=== PATIENT | female | born 1945 | race Caucasian/White ===

== ENCOUNTER 2016-10-17 11:18 | Inpatient (IN) | payer BC, MEDICARE ==
[2016-10-17] MEDS ORDERED: SODIUM CHLORIDE 0.9% 500 ML IV STA (11:33)
[2016-10-17] MEDS ORDERED: SODIUM CHLORIDE 0.9% 1,000 ML IV STA ×2 (11:33→16:19)
--- NOTE | 2016-10-17 11:42 | ED ---
SOB HPI - General Stated Complaint: Poss Infection Time Seen by Provider: 10/17/16 11:18 Source: patient, EMS, RN notes reviewed Mode of arrival: EMS - History of Present Illness Initial Comments: This is a 71-year-old female was [facility] evaluation of shortness of breath and hypotension. 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 She still has a drainage tube in for her bile. He was just released from [facility] the [facility] her normal blood pressure is 1:30/70 today was 90/50 she was afebrile heart rate was 112 patient does states she recently had a thoracentesis with one half liters of fluid removed from her lung cavity. She also complains of peripheral edema which she states is not too much worsening usual she has no other complaints at this time. MD Complaint: shortness of breath - Related Data Home Medications Medication Instructions Recorded Confirmed Albuterol Sulfate [Proventil Hfa] 2 puff INHALATION RT-Q4H PRN 10/17/16 10/17/16 Biotin 5,000 mcg PO DAILY@1700 10/17/16 10/17/16 Bisacodyl [Dulcolax] 10 mg RECTAL DAILY PRN 10/17/16 10/17/16 Calcium Citrate 500 mg PO BID@0800,0 10/17/16 10/17/16 Cholecalciferol [Vitamin D3] 5,000 unit PO DAILY@1700 10/17/16 10/17/16 Furosemide [Lasix] 20 mg PO DAILY@0600 10/17/16 10/17/16 Hydrocortisone Cream 1 applic TOPICAL BID 10/17/16 10/17/16 [Hydrocortisone 1% Cream] Lactose-Reduced Food [Ensure Plus] 120 ml PO QID 10/17/16 10/17/16 Magnesium Hydroxide [Milk of 2,400 mg PO DAILY PRN 10/17/16 10/17/16 Magnesia] Meropenem [Merrem] 1 gm IVPB DIRECTED 10/17/16 10/17/16 Mirtazapine [Remeron] 15 mg PO HS@2100 10/17/16 10/17/16 Multivitamins, Thera [Multivitamin 1 tab PO DAILY@17010/17/16 10/17/16 (formulary)] Na Phos,M-B/Na Phos,Di-Ba [Fleet 133 ml RECTAL DAILY PRN 10/17/16 10/17/16 Adult] Omeprazole 20 mg PO BID@0600,1700 10/17/16 10/17/16 Potassium Chloride [Klor-Con 20] 20 meq PO DAILY@1700 10/17/16 10/17/16 Sennosides [Senokot] 17.2 mg PO BID@0800,1700 10/17/16 10/17/16 busPIRone HCl [Buspar] 5 mg PO TID@0600,1400,2100 10/17/16 10/17/16 diphenhydrAMINE [Benadryl] 25 mg PO Q6H PRN 10/17/16 10/17/16 fentaNYL 50MCG/HR PATCH [Duragesic 1 patch TOPICAL Q72H 10/17/16 10/17/16 50MCG/HR] oxyCODONE HCL 15 mg PO Q4H PRN 10/17/16 10/17/16 Allergies Allergy/AdvReac Type Severity Reaction Status Date / Time piperacillin [From Zosyn] Allergy Unknown Verified 10/17/16 11:45 tazobactam [From Zosyn] Allergy Unknown Verified 10/17/16 11:45 morphine AdvReac Confusion Verified 10/17/16 11:40 Review of Systems ROS Statement: Those systems with pertinent positive or pertinent negative responses have been documented in the HPI. ROS Other: All systems not noted in ROS Statement are negative. General Exam - General Exam Comments Initial Comments: This is a well-developed well-nourished awake alert oriented 3 female General appearance: alert, in no apparent distress Head exam: Present: atraumatic, normocephalic, normal inspection Eye exam: Present: normal appearance, PERRL, EOMI. Absent: scleral icterus, conjunctival injection, periorbital swelling ENT exam: Present: mucous membranes dry Neck exam: Present: normal inspection. Absent: tenderness, meningismus, lymphadenopathy Respiratory exam: Present: decreased breath sounds, other (Dullness to percussion right greater than left). Absent: respiratory distress, wheezes, rales, rhonchi, stridor Cardiovascular Exam: Present: normal rhythm, tachycardia, normal heart sounds. Absent: systolic murmur, diastolic murmur, rubs, gallop, clicks GI/Abdominal exam: Present: soft, normal bowel sounds, other (A drainage catheter is in place draining bile or some evidence of bile leak around the site ). Absent: distended, tenderness, guarding, rebound, rigid Rectal exam: Present: deferred Extremities exam: Present: normal inspection, full ROM, normal capillary refill , pedal edema. Absent: tenderness, joint swelling, calf tenderness Back exam: Present: normal inspection Neurological exam: Present: alert, oriented X3, CN II-XII intact Psychiatric exam: Present: normal affect, normal mood Skin exam: Present: warm, dry, intact. Absent: rash Course Vital Signs 10/17/16 10/17/16 10/17/16 11:31 13:56 14:04 Temperature 98.7 F Pulse Rate 110 H 119 H 117 H Respiratory 22 18 20 Rate Blood Pressure 95/52 97/53 107/59 O2 Sat by Pulse 96 97 97 Oximetry 10/17/16 10/17/16 10/17/16 15:12 16:00 16:46 Temperature Pulse Rate 113 H 112 H 111 H Respiratory 16 20 20 Rate Blood Pressure 97/56 95/53 97/56 O2 Sat by Pulse 98 98 98 Oximetry - Reevaluation(s) Reevaluation #1: 10/17/16 18:06 Initial reevaluation patient reveals that she son minimally improved after initial IVs. Reevaluation #2: 10/17/16 18:06 I did a very long talk with the patient and her family as well as with Dr. Almaguer and [facility]. The patient initially wanted to be transferred after discussion with her surgeon it is felt that the patient remain here for IV hydration the patient at this time is refusing to have a thoracentesis. She' ll be hydrated up at did discuss the case with the admitting service. The patient's lab work has improved since her discharge is felt that her pleural effusion is likely not any better than when she left [place] a week ago. Medical Decision Making - Lab Data Result diagrams: 10/17/16 11:55 10/17/16 11:55 Lab Results 10/17/16 10/17/16 10/17/16 Range/Units 11:55 11:55 11:55 WBC (3.8-10.6) k/uL RBC (3.80-5.40) m/uL Hgb (11.4-16.0) gm/dL Hct (34.0-46.0) % MCV (80.0-100.0) fL MCH (25.0-35.0) pg MCHC (31.0-37.0) g/dL RDW (11.5-15.5) % Plt Count (150-450) k/uL Neutrophils % % Lymphocytes % % Monocytes % % Eosinophils % % Basophils % % Neutrophils # (1.3-7.7) k/uL Lymphocytes # (1.0-4.8) k/uL Monocytes # (0-1.0) k/uL Eosinophils # (0-0.7) k/uL Basophils # (0-0.2) k/uL Hypochromasia Macrocytosis PT (9.0-12.0) sec INR (<1.1) APTT (22.0-30.0) sec Sodium 133 L (137-145) mmol/L Potassium 4.7 (3.5-5.1) mmol/L Chloride 102 (98-107) mmol/L Carbon Dioxide 26 (22-30) mmol/L Anion Gap 5 mmol/L BUN 15 (7-17) mg/dL Creatinine 0.66 (0.52-1.04) mg/dL Est GFR (MDRD) Af Amer >60 (>60 ml/min/1.73 sqM) Est GFR (MDRD) Non-Af >60 (>60 ml/min/1.73 sqM) Glucose 119 H (74-99) mg/dL Plasma Lactic Acid John 1.9 (0.7-2.0) mmol/L Calcium 7.5 L (8.4-10.2) mg/dL Magnesium 2.0 (1.6-2.3) mg/dL Total Bilirubin 2.0 H (0.2-1.3) mg/dL AST 29 (14-36) U/L ALT 38 (9-52) U/L Alkaline Phosphatase 104 (38-126) U/L Total Creatine Kinase <20 L (30-135) U/L CK-MB (CK-2) 0.3 (0.0-2.4) ng/mL CK-MB (CK-2) Rel Index 0.0 Troponin I <0.012 (0.000-0.034) ng/mL NT-Pro-B Natriuret Pep pg/mL Total Protein 5.1 L (6.3-8.2) g/dL Albumin 2.1 L (3.5-5.0) g/dL Amylase 57 (30-110) U/L Lipase 94 (23-300) U/L 10/17/16 10/17/16 10/17/16 Range/Units 11:55 11:55 11:55 WBC 13.0 H (3.8-10.6) k/uL RBC 3.10 L (3.80-5.40) m/uL Hgb 10.2 L (11.4-16.0) gm/dL Hct 31.1 L (34.0-46.0) % MCV 100.3 H (80.0-100.0) fL MCH 32.9 (25.0-35.0) pg MCHC 32.8 (31.0-37.0) g/dL RDW 14.8 (11.5-15.5) % Plt Count 269 (150-450) k/uL Neutrophils % 70 % Lymphocytes % 12 % Monocytes % 5 % Eosinophils % 11 % Basophils % 1 % Neutrophils # 9.1 H (1.3-7.7) k/uL Lymphocytes # 1.5 (1.0-4.8) k/uL Monocytes # 0.6 (0-1.0) k/uL Eosinophils # 1.4 H (0-0.7) k/uL Basophils # 0.1 (0-0.2) k/uL Hypochromasia Slight Macrocytosis Slight PT 13.0 H (9.0-12.0) sec INR 1.3 (<1.1) APTT 29.5 (22.0-30.0) sec Sodium (137-145) mmol/L Potassium (3.5-5.1) mmol/L Chloride (98-107) mmol/L Carbon Dioxide (22-30) mmol/L Anion Gap mmol/L BUN (7-17) mg/dL Creatinine (0.52-1.04) mg/dL Est GFR (MDRD) Af Amer (>60 ml/min/1.73 sqM) Est GFR (MDRD) Non-Af (>60 ml/min/1.73 sqM) Glucose (74-99) mg/dL Plasma Lactic Acid John (0.7-2.0) mmol/L Calcium (8.4-10.2) mg/dL Magnesium (1.6-2.3) mg/dL Total Bilirubin (0.2-1.3) mg/dL AST (14-36) U/L ALT (9-52) U/L Alkaline Phosphatase (38-126) U/L Total Creatine Kinase (30-135) U/L CK-MB (CK-2) (0.0-2.4) ng/mL CK-MB (CK-2) Rel Index Troponin I (0.000-0.034) ng/mL NT-Pro-B Natriuret Pep 446 pg/mL Total Protein (6.3-8.2) g/dL Albumin (3.5-5.0) g/dL Amylase (30-110) U/L Lipase (23-300) U/L - EKG Data -: EKG Interpreted by Ak EKG shows normal: sinus rhythm (Sinus tachycardia rate 109 appear of 12 QRS duration 66 daily since QTC of 320/4:30 right axis deviation nonspecific anterior changes.) Disposition Clinical Impression: Hypotension, Dehydration, Pleural effusion, History of liver excision Disposition: ADMITTED IP TO THIS [facility] Condition: Stable Referrals: Raffaele Cooper DO [Primary Care Provider] - 1-2 days
[2016-10-17 12:21] LABS: ALT 38 U/L (9-52); AST 29 U/L (14-36); Alkaline Phosphatase 104 U/L (38-126); Amylase 57 U/L (30-110); Anion Gap 5 mmol/L; Blood Urea Nitrogen 15 mg/dL (7-17); Calcium 7.5 mg/dL (8.4-10.2); Carbon Dioxide 26 mmol/L (22-30); Chloride 102 mmol/L (98-107); Glucose 119 mg/dL (74-99); Non-African American GFR(MDRD) >60 (>60 ml/min/1.73 sqM); Potassium 4.7 mmol/L (3.5-5.1); Sodium 133 mmol/L (137-145); Total Protein 5.1 g/dL (6.3-8.2)
--- NOTE | 2016-10-17 12:25 | XR ---
EXAMINATION TYPE: XR chest 2V DATE OF EXAM: 10/17/2016 12:18 PM HISTORY: difficulty breathing. REFERENCE: NONE. FINDINGS: Lung volumes are prominent. There are bilateral effusions larger on the right than the left . There is associated atelectatic change. Heart size is obscured. Note is made of a right basilic PICC line with its tip in the superior vena cava. IMPRESSION: 1. BILATERAL PLEURAL EFFUSIONS, GREATER ON THE RIGHT THAN THE LEFT. 2. BIBASILAR ATELECTASIS.
[2016-10-17 12:27] LABS: Basophils # (A) 0.1 k/uL (0-0.2); Basophils % (A) 1 %; CH 31.4; CHCM 31.5; Eosinophils # (A) 1.4 k/uL (0-0.7); Eosinophils % (A) 11 %; HCT 31.1 % (34.0-46.0); HDW 2.88; HGB 10.2 gm/dL (11.4-16.0); Hypochromasia Slight; Luc # (Auto) 0.23; Luc % (Auto) 2; Lymphocytes # (A) 1.5 k/uL (1.0-4.8); Lymphocytes % (A) 12 %; MCH 32.9 pg (25.0-35.0); MCHC 32.8 g/dL (31.0-37.0); MCV 100.3 fL (80.0-100.0); Macrocytosis Slight; Mean Platelet Volume 6.7; Monocytes # (A) 0.6 k/uL (0-1.0); Monocytes % (A) 5 %; Neutrophils # (A) 9.1 k/uL (1.3-7.7); Neutrophils % (A) 70 %; RDW 14.8 % (11.5-15.5); WBC (Perox) 13.12
[2016-10-17 12:42] LABS: Creatine Kinase <20 U/L (30-135)
[2016-10-17 12:52] LABS: INR 1.3 (<1.1); Partial Thromboplastin Time 29.5 sec (22.0-30.0)
[2016-10-17 12:54] LABS: Creatine Kinase MB 0.3 ng/mL (0.0-2.4); Troponin I <0.012 ng/mL (0.000-0.034)
[2016-10-17] MEDS ORDERED: diphenhydrAMINE 50 MG/ML 1 ML VIAL IVP STA (13:48)
[2016-10-17] MEDS ORDERED: HYDROmorphone 1 MG/ML 1 ML SYRINGE IVP STA (13:50)
--- NOTE | 2016-10-17 15:45 | US ---
EXAMINATION TYPE: US venous doppler duplex LE BI DATE OF EXAM: 10/17/2016 3:00 PM COMPARISON: NONE CLINICAL HISTORY: Pain. Bilateral leg swelling SIDE PERFORMED: Bilateral TECHNIQUE: The lower extremity deep venous system is examined utilizing real time linear array sonog gómez with graded compression, doppler sonography and color-flow sonography. VESSELS IMAGED: External Iliac Vein (EIV) Common Femoral Vein Deep Femoral Vein Greater Saphenous Vein * Femoral Vein Popliteal Vein Small Saphenous Vein * Proximal Calf Veins (* superficial vessels) Right Leg: Appears negative for DVT Left Leg: Appears negative for DVT IMPRESSION: 1. No diagnostic evidence of DVT
[2016-10-17] MEDS ORDERED: NALOXONE 0.4 MG/ML 1 ML VIAL IV PRN (18:09)
[2016-10-17] MEDS ORDERED: MAGNESIUM HYDROXIDE 2,400 MG/10 ML CUP PO PRN (18:12)
[2016-10-17] MEDS ORDERED: BISACODYL 10 MG SUPP RECTAL PRN (18:12)
[2016-10-17] MEDS ORDERED: NA PHOS,M-B/NA PHOS,DI-BA 133 ML ENEMA RECTAL PRN (18:12)
[2016-10-17] MEDS ORDERED: ALBUTEROL NEBULIZED 2.5 MG/3 ML INHALATION PRN (18:12)
[2016-10-17] MEDS ORDERED: diphenhydrAMINE 25 MG CAP PO PRN (18:12)
[2016-10-17] MEDS ORDERED: MEROPENEM 1 GM VIAL IVPB SCH (18:15)
[2016-10-17] MEDS: HYDROmorphone 1 MG/ML 1 ML SYRINGE IVP PRN (18:41)
[2016-10-17] MEDS ORDERED: CYCLOBENZAPRINE 5 MG TAB PO STA (19:53)
[2016-10-17] MEDS: busPIRone HCl 5 MG TAB PO SCH (20:18)
[2016-10-17] MEDS: HYDROCORTISONE 1% CREAM 30 GM TUBE TOPICAL SCH (20:19)
[2016-10-17] MEDS ORDERED: MIRTAZAPINE 15 MG TAB PO SCH (21:00)
[2016-10-17] MEDS ORDERED: NON-FORMULARY DRUG (Lactose-Reduced Food [Ensure Plus] 120 ML) PO SCH (22:00)
[2016-10-17 22:27] VITALS: BMI 28.8
[2016-10-17] MEDS: MEROPENEM 1 GM in SODIUM CHLORIDE 0.9% 100 ML IVPB SCH (23:42)
[2016-10-17] MEDS: HEPARIN SODIUM,PORCINE 5,000 UNIT/ML 1 ML VIAL SQ SCH (23:43)
[2016-10-17] MEDS: FUROSEMIDE 10 MG/ML 2 ML VIAL IV SCH (23:43)
[2016-10-18] MEDS ORDERED: FUROSEMIDE 20 MG TAB PO SCH (06:00)
[2016-10-18] MEDS: busPIRone HCl 5 MG TAB PO SCH ×2 (06:19→14:08)
[2016-10-18] MEDS ORDERED: PANTOPRAZOLE 40 MG TABLET PO SCH (07:30)
[2016-10-18] MEDS ORDERED: CALCIUM CITRATE 500 MG PO SCH (08:00)
[2016-10-18] MEDS ORDERED: SENNOSIDES 8.6 MG TAB PO SCH (08:00)
--- NOTE | 2016-10-18 08:13 | HP ---
DATE OF ADMISSION: 10/17/2016 PRESENTING COMPLAINT: Low blood pressure. HISTORY OF PRESENTING COMPLAINT: This is a very pleasant 71-year-old patient of Dr. Cooper with extensive medical history, patient back on September 18 underwent surgery for gallbladder cancer at [facility]. She states gallbladder and half of the liver was removed and the bile duct was rerouted. Patient has got a biliary drain. Postoperatively, patient did have 2 NAFISA drains that were actually then removed. Patient did have a bile leak. Patient was treated with 2 antibiotics and patient currently is on meropenem. Prior to the surgery, patient had a sinus infection, treated with antibiotics. Patient now was transferred here because blood pressure is running low. Patient's ( ) is not the best. Patient has some slightly short of breath, very slight cough. Denies any burning in the urine. Has about 1 or 2 bowel movements a day. Patient has got significant edema in both lower extremity and some oozing from the same. Patient has got a bile duct drain. Patient's other chronic stable medical conditions include insomnia, depression, osteoarthritis, some asthma. REVIEW OF SYSTEMS: CONSTITUTIONAL: Tired, decreased appetite. HEENT: None. RESPIRATORY: Some shortness of breath. CARDIOVASCULAR: No chest pain, edema present. GASTROINTESTINAL: None. GENITOURINARY: None. MUSCULOSKELETAL: Aches and pain in the joints. DERMATOLOGICAL: Oozing from the lower extremity. HEMATOLOGICAL: None. LYMPHATICS: None. PSYCHIATRY: Depression. NEUROLOGICAL: None. PAST HISTORY: Gallbladder cancer, insomnia, depression, osteoarthritis, asthma. PAST SURGICAL HISTORY: Recent surgery as above, appendectomy, bladder surgery, breast biopsy, had a PICC line in the right arm. SOCIAL HISTORY: Patient is a , smoked in the remote past. Alcohol rarely. FAMILY HISTORY: Not correlated to presentation. HOME MEDICATIONS: 1. OxyContin 50 mg p.o. q.4 p.r.n. 2. Proventil 2 puffs q.4 p.r.n. 3. Milk of magnesia 2400 mg p.o. daily p.r.n. 4. Adult Fleet 133 mL daily p.r.n. 5. Duragesic patch q.72h, 50 mcg patch. 6. Dulcolax p.r.n. 7. Benadryl 25 mg q.6 p.r.n. 8. Ensure Plus 120 mL q.i.d. 9. Meropenem 1 gm IV piggyback as directed. 10. BuSpar 5 mg p.o. b.i.d. 11. Senokot 17.2 mg p.o. b.i.d. 12. Omeprazole 20 mg p.o. b.i.d. 13. Hydrocortisone 1% topical b.i.d. 14. Calcium 500 mg b.i.d. 15. Vitamin D3 five thousand units p.o. daily. 16. Potassium 20 mEq daily. 17. Multivitamin 1 tablet p.o. daily. 18. Remeron 50 mg q.h.s. 19. Lasix 20 mg p.o. daily. 20. Biotin 5000 mcg p.o. daily. Allergies to ZOSYN, MORPHINE. On examination, temperature 97.6, pulse 107, respiration 20, blood pressure 107/58, pulse ox 99% on 2 L. GENERAL APPEARANCE: Well built, sitting up, tired-appearing. EYES: Pupils equal. Conjunctivae normal. HEENT: Oral cavity normal. NECK: JVD unable to assess. Mass not palpable. RESPIRATORY: Effort increased. LUNGS: Diminished breath sounds. Some crackles. CARDIOVASCULAR: First and second sounds normal, gross edema present. ABDOMEN: Soft, nontender. Incision, healing well. Patient has got a right-sided biliary duct drain. LYMPHATICS: No lymph node palpable in neck or axillae. PSYCHIATRY: Alert and oriented x3. Mood and affect normal. NEUROLOGICAL: Pupils equal. Cranial nerves grossly intact. Power and sensation grossly intact. MUSCULOSKELETAL: Evidence of osteoarthritis in multiple joints. INVESTIGATIONS: White count 13, hemoglobin 10.2. Potassium 4.7. BUN and creatinine are normal. Bilirubin is 2, albumin 2.1. EKG some sinus tachycardia. Chest x-ray shows some fluid in oblique fissure and pleural effusion is present. Doppler ultrasound negative for DVT. ASSESSMENT: 1. Hypotension in a patient who recently got surgery, rather hypoalbuminemic that itself could be causing hypotension. Rule out a cardiac cause. In that patient got pleural effusion, there may be a congestive heart failure element. 2. Gross fluid overload, again could be from hyperalbuminemia. Need to rule out a cardiac cause. 3. 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 4. Chronic insomnia. 5. Depression, not otherwise specified. 6. Biliary duct drain in place. 7. Primary osteoarthritis in multiple joints, bilaterally. 8. Asthma. PLAN: At this point, will put the patient on IV Lasix 20 mg q.8, will do a 2-D echocardiogram. Also get a consultation from Cardiology and Pulmonary and also Infectious Disease as patient is on IV meropenem. Home medications will be continued at this time. Care was discussed with the patient. Will also obtain records from [facility].
[2016-10-18] MEDS: HEPARIN SODIUM,PORCINE 5,000 UNIT/ML 1 ML VIAL SQ SCH (08:27)
[2016-10-18 08:53] VITALS: BP 99/52; RESP 16; TEMP 98.1
[2016-10-18] MEDS: FUROSEMIDE 10 MG/ML 2 ML VIAL IV SCH (08:54)
[2016-10-18] MEDS: HYDROCORTISONE 1% CREAM 30 GM TUBE TOPICAL SCH (08:55)
[2016-10-18] MEDS: MEROPENEM 1 GM in SODIUM CHLORIDE 0.9% 100 ML IVPB SCH (08:55)
--- NOTE | 2016-10-18 09:49 | P.CONS ---
History of Present Illness - Reason for Consult Consult date: 10/18/16 Postop infection - History of Present Illness This is a 71-year-old female with a significant past history of gallbladder cancer status post resection and partial liver resection done at [facility] on September 18. It sounds like patient had a complicated course and underwent a thoracentesis with removal of one and a half liters as well as a postop wound infection for which she has been on meropenem. Patient was discharged to [facility] on October 14 for subacute rehab. At the intermediate she developed a low blood pressure and shortness of breath for which she was sent to [facility] emergency center for evaluation. She was noted to be afebrile. Heart rate was elevated. White count was 13 and hemoglobin 10.1. GFR greater than 60 and albumin 2.1. Patient had chest x-ray that showed bilateral pleural effusions right greater than left with bibasilar atelectasis. Thoracentesis was discussed with the patient in the emergency center but she had refused. When discussed at this time, patient states that she is afraid that she is going have collapse of her lung based on something the physician said to her when she was having her last thoracentesis well at [place]. Ultrasound of the lower extremities was negative for DVT. Consults are in place for cardiology, general surgeon and pulmonary medicine. Patient does state that she knows that there is fluid in her lungs and is afraid to undergo the thoracentesis. She states her blood pressure is always low but this was lower than normal. She denies any symptoms with this low blood pressure. He should also states that she has had increased edema to the lower extremities and on her transport to [facility] her lower leg started to weep for which dressings have been placed. She also states that while she was at [place] she did have a rash and itching to her legs especially in the thighs bilaterally. She is on Lasix 20 mg IV every 8 hours which is a continued medication for [facility]. Review of Systems All systems: negative Constitutional: Denies chills, Denies fever Eyes: denies blurred vision, denies pain Ears, nose, mouth and throat: Denies headache, Denies sore throat Cardiovascular: Reports leg edema, Reports shortness of breath, Denies chest pain Respiratory: Reports dyspnea, Denies cough Gastrointestinal: Denies abdominal pain, Denies diarrhea, Denies nausea, Denies vomiting Genitourinary: Denies dysuria, Denies hematuria Musculoskeletal: Denies myalgias Integumentary: Reports wounds, Denies pruritus, Denies rash Neurological: Denies numbness, Denies weakness Psychiatric: Denies anxiety, Denies depression Endocrine: Denies fatigue, Denies weight change Past Medical History Past Medical History: Asthma, Cancer Additional Past Medical History / Comment(s): 2004 appendix burst. Gallbladder CA History of Any Multi-Drug Resistant Organisms: None Reported Past Surgical History: Appendectomy, Bladder Surgery Additional Past Surgical History / Comment(s): pt states half liver, all of gallbladder and rerouted bile ducts and has a drainage system for bile. Breast biopsy, PICC line right upper arm Past Psychological History: No Psychological Hx Reported Smoking Status: Former smoker Past Alcohol Use History: Rare Additional Past Alcohol Use History / Comment(s): Patient smokes one pack of cigarettes per day and quit 37 years ago. She denies any medical marijuana, marijuana, street drug use. She drinks alcohol on a very rare ASIS. She is currently living alone as her day after . 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 She recently vacationed in [place] with a camper, her dog in her sister. She has been very active and only see a proximal a 6-8 months ago she was splitting logs with a log splitter on her property. Past Drug Use History: None Reported Medications and Allergies Home Medications Medication Instructions Recorded Confirmed Type Albuterol Sulfate [Proventil Hfa] 2 puff INHALATION RT-Q4H PRN 10/17/16 History Biotin 5,000 mcg PO DAILY@169910/17/16 10/17/16 History Bisacodyl [Dulcolax] 10 mg RECTAL DAILY PRN 10/17/16 10/17/16 History Calcium Citrate 500 mg PO BID@0800,169910/17/16 10/17/16 History Cholecalciferol [Vitamin D3] 5,000 unit PO DAILY@169910/17/16 10/17/16 History Furosemide [Lasix] 20 mg PO DAILY@0600 10/17/16 10/17/16 History Hydrocortisone Cream 1 applic TOPICAL BID 10/17/16 10/17/16 History [Hydrocortisone 1% Cream] Lactose-Reduced Food [Ensure Plus] 120 ml PO QID 10/17/16 10/17/16 History Magnesium Hydroxide [Milk of 2,400 mg PO DAILY PRN 10/17/16 10/17/16 History Magnesia] Meropenem [Merrem] 1 gm IVPB DIRECTED 10/17/16 10/17/16 History Mirtazapine [Remeron] 15 mg PO HS@2100 10/17/16 10/17/16 History Multivitamins, Thera [Multivitamin 1 tab PO DAILY@1700 10/17/16 10/17/16 History (formulary)] Na Phos,M-B/Na Phos,Di-Ba [Fleet 133 ml RECTAL DAILY PRN 10/17/16 10/17/16 History Adult] Omeprazole 20 mg PO BID@0600,1700 10/17/16 10/17/16 History Potassium Chloride [Klor-Con 20] 20 meq PO DAILY@1700 10/17/16 10/17/16 History Sennosides [Senokot] 17.2 mg PO BID@0800,1700 10/17/16 10/17/16 History busPIRone HCl [Buspar] 5 mg PO TID@0600,1400,2100 10/17/16 10/17/16 History diphenhydrAMINE [Benadryl] 25 mg PO Q6H PRN 10/17/16 10/17/16 History fentaNYL 50MCG/HR PATCH [Duragesic 1 patch TOPICAL Q72H 10/17/16 10/17/16 History 50MCG/HR] oxyCODONE HCL 15 mg PO Q4H PRN 10/17/16 10/17/16 History Allergies Allergy/AdvReac Type Severity Reaction Status Date / Time piperacillin [From Zosyn] Allergy Unknown Verified 10/17/16 11:45 tazobactam [From Zosyn] Allergy Unknown Verified 10/17/16 11:45 morphine AdvReac Confusion Verified 10/17/16 11:40 Physical Exam Vitals: Vital Signs Temp Pulse Resp BP Pulse Ox 10/17/16 18:51 97.6 F 107 H 20 107/58 99 10/17/16 16:46 111 H 20 97/56 98 10/17/16 16:00 112 H 20 95/53 98 10/17/16 15:12 113 H 16 97/56 98 10/17/16 14:04 117 H 20 107/59 97 10/17/16 13:56 119 H 18 97/53 97 10/17/16 11:31 98.7 F 110 H 22 95/52 96 Intake and Output 10/17/16 10/18/16 10/18/16 22:59 06:59 14:59 Intake Total 300 800 Balance 300 800 Intake: IV 300 800 Meropenem 1 gm In Sodium 100 Chloride 0.9% 100 ml @ 200 mls/hr IVPB Q8HR ALYSSA Rx#:[id number] Sodium Chloride 0.9% 1, 200 800 000 ml @ 100 mls/hr IV . Q10H STA Rx#:[id number] Other: Voiding Method Toilet # Voids 3 Weight 66.905 kg 66.905 kg Gen: This is a 71-year-old female. She is sitting up in bed and appears to be in no acute distress. No respiratory distress is noted at rest. HEENT: Head is atraumatic, normocephalic. Pupils equal, round. Sclerae is anicteric. Conjunctiva slightly pale. Mucous members of the mouth are moist. Dentition is in good order. No thrush noted. NECK: Supple. No JVD. No lymphadenopathy. No thyromegaly. LUNGS: Decreased breath sounds bilaterally more so on the right. No intercostal retractions. HEART: Regular rate and rhythm. No murmur. ABDOMEN: Soft. Bowel sounds are present. No masses. No tenderness. Surgical wound to the right upper quadrant is healed nicely with no open areas, erythema or edema. Mild drainage tube is in place connected to reservoir with return of dark yellow fluid EXTREMITIES: +1 pedal edema bilaterally extending up into the bilateral thighs. No calf tenderness. Dorsalis pedis +2 bilaterally. NEUROLOGICAL: Patient is awake, alert and oriented x3. Cranial nerves 2 through 12 are grossly intact. Results Results: Laboratory Results WBC 13.0 k/uL (3.8-10.6) H 10/17/16 11:55 RBC 3.10 m/uL (3.80-5.40) L 10/17/16 11:55 Hgb 10.2 gm/dL (11.4-16.0) L 10/17/16 11:55 Hct 31.1 % (34.0-46.0) L 10/17/16 11:55 MCV 100.3 fL (80.0-100.0) H 10/17/16 11:55 MCH 32.9 pg (25.0-35.0) 10/17/16 11:55 MCHC 32.8 g/dL (31.0-37.0) 10/17/16 11:55 RDW 14.8 % (11.5-15.5) 10/17/16 11:55 Plt Count 269 k/uL (150-450) 10/17/16 11:55 Neutrophils % 70 % 10/17/16 11:55 Lymphocytes % 12 % 10/17/16 11:55 Monocytes % 5 % 10/17/16 11:55 Eosinophils % 11 % 10/17/16 11:55 Basophils % 1 % 10/17/16 11:55 Neutrophils # 9.1 k/uL (1.3-7.7) H 10/17/16 11:55 Lymphocytes # 1.5 k/uL (1.0-4.8) 10/17/16 11:55 Monocytes # 0.6 k/uL (0-1.0) 10/17/16 11:55 Eosinophils # 1.4 k/uL (0-0.7) H 10/17/16 11:55 Basophils # 0.1 k/uL (0-0.2) 10/17/16 11:55 Hypochromasia Slight 10/17/16 11:55 Macrocytosis Slight 10/17/16 11:55 PT 13.0 sec (9.0-12.0) H 10/17/16 11:55 INR 1.3 (<1.1) 10/17/16 11:55 APTT 29.5 sec (22.0-30.0) 10/17/16 11:55 Sodium 133 mmol/L (137-145) L 10/17/16 11:55 Potassium 4.7 mmol/L (3.5-5.1) 10/17/16 11:55 Chloride 102 mmol/L (98-107) 10/17/16 11:55 Carbon Dioxide 26 mmol/L (22-30) 10/17/16 11:55 Anion Gap 5 mmol/L 10/17/16 11:55 BUN 15 mg/dL (7-17) 10/17/16 11:55 Creatinine 0.66 mg/dL (0.52-1.04) 10/17/16 11:55 Est GFR (MDRD) Af Amer >60 (>60 ml/min/1.73 sqM) 10/17/16 11:55 Est GFR (MDRD) Non-Af >60 (>60 ml/min/1.73 sqM) 10/17/16 11:55 Glucose 119 mg/dL (74-99) H 10/17/16 11:55 Plasma Lactic Acid Ojhn 1.9 mmol/L (0.7-2.0) 10/17/16 11:55 Calcium 7.5 mg/dL (8.4-10.2) L 10/17/16 11:55 Magnesium 2.0 mg/dL (1.6-2.3) 10/17/16 11:55 Total Bilirubin 2.0 mg/dL (0.2-1.3) H 10/17/16 11:55 AST 29 U/L (14-36) 10/17/16 11:55 ALT 38 U/L (9-52) 10/17/16 11:55 Alkaline Phosphatase 104 U/L (38-126) 10/17/16 11:55 Total Creatine Kinase <20 U/L (30-135) L 10/17/16 11:55 CK-MB (CK-2) 0.3 ng/mL (0.0-2.4) 10/17/16 11:55 CK-MB (CK-2) Rel Index 0.0 10/17/16 11:55 Troponin I <0.012 ng/mL (0.000-0.034) 10/17/16 11:55 NT-Pro-B Natriuret Pep 446 pg/mL 10/17/16 11:55 Total Protein 5.1 g/dL (6.3-8.2) L 10/17/16 11:55 Albumin 2.1 g/dL (3.5-5.0) L 10/17/16 11:55 Amylase 57 U/L (30-110) 10/17/16 11:55 Lipase 94 U/L (23-300) 10/17/16 11:55 CBC & Chem 7: 10/17/16 11:55 10/17/16 11:55 Labs: Abnormal Lab Results - Last 24 Hours (Table) 10/17/16 10/17/16 10/17/16 Range/Units 11:55 11:55 11:55 WBC 13.0 H (3.8-10.6) k/uL RBC 3.10 L (3.80-5.40) m/uL Hgb 10.2 L (11.4-16.0) gm/dL Hct 31.1 L (34.0-46.0) % MCV 100.3 H (80.0-100.0) fL Neutrophils # 9.1 H (1.3-7.7) k/uL Eosinophils # 1.4 H (0-0.7) k/uL PT (9.0-12.0) sec Sodium 133 L (137-145) mmol/L Glucose 119 H (74-99) mg/dL Calcium 7.5 L (8.4-10.2) mg/dL Total Bilirubin 2.0 H (0.2-1.3) mg/dL Total Creatine Kinase <20 L (30-135) U/L Total Protein 5.1 L (6.3-8.2) g/dL Albumin 2.1 L (3.5-5.0) g/dL 10/17/16 Range/Units 11:55 WBC (3.8-10.6) k/uL RBC (3.80-5.40) m/uL Hgb (11.4-16.0) gm/dL Hct (34.0-46.0) % MCV (80.0-100.0) fL Neutrophils # (1.3-7.7) k/uL Eosinophils # (0-0.7) k/uL PT 13.0 H (9.0-12.0) sec Sodium (137-145) mmol/L Glucose (74-99) mg/dL Calcium (8.4-10.2) mg/dL Total Bilirubin (0.2-1.3) mg/dL Total Creatine Kinase (30-135) U/L Total Protein (6.3-8.2) g/dL Albumin (3.5-5.0) g/dL Assessment and Plan Plan: This is a 71-year-old female presented to the hospital with worsening bibasilar pleural effusions worse on the right side was shortness of breath and hypotension. She has recent history of surgery for gallbladder cancer and partial resection of the liver with bile drainage tube in place. She has been treated for postop infection with meropenem which will be continued here. Patient states her course of Merrem will be completed on October 23. Regarding the lower extremity swelling and weeping, Silvadene wraps and elevation will be ordered. Continue supportive care. Further recommendations as patient progresses. The above dictated assessment and findings were discussed with Dr. Cordova. The impression and plan of care have been directed as dictated. Sabrina Olguin nurse practitioner acting as scribe for Dr. Cordova.
[2016-10-18] MEDS: HYDROmorphone 1 MG/ML 1 ML SYRINGE IVP PRN ×2 (10:54→14:08)
--- NOTE | 2016-10-18 10:59 | US ---
EXAMINATION TYPE: US chest DATE OF EXAM: 10/18/2016 10:53 AM COMPARISON: NONE CLINICAL HISTORY: rt pleural effusion. EXAM MEASUREMENTS: Right Pleural Effusion fluid pocket: 11.8 cm - loculations noted Right skin to fluid thickness: 2.1 cm Right side marked for possible thoracentesis outside the dept. Pulmonologists are able to review the images in the patient?s EMR. IMPRESSIONS: Right pleural effusion
[2016-10-18 11:07] VITALS: PULSE 102
--- NOTE | 2016-10-18 11:18 | P.CNPUL ---
History of Present Illness Consult date: 10/18/16 Requesting physician: Severiano Flood Reason for consult: dyspnea, abnormal CXR/CT (Bilateral pleural effusions) Chief complaint: Shortness of breath History of present illness: This is a very pleasant 71-year-old female patient who follows with Dr. Josie Cooper as her primary care physician. She has a history of insomnia, depression, asthma, osteoarthritis. 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 On 09/18/2016 she had undergone a right hepatectomy, Kiara-en-Y hepaticojejunostomy, common bile duct resection at [facility]. Pathology was positive for gallbladder adenocarcinoma. Her postoperative course was complicated by persistent epistaxis and required nasal balloon packing. She also had complications of uncontrolled pain and then developed an intra-abdominal abscess and bile leak and she had an intra-abdominal drain placed. That fluid was positive for enterococcus faecalis and Clostridium perfringens. She was discharged on 2016 with a biliary drain still in place and IV meropenem to the [facility] care facility. Prior to that on 10/10/2016 she had undergone a right-sided thoracentesis for right pleural effusion which revealed no evidence of infection. She was brought here to the emergency room yesterday after only 3 days at the [facility] with complaints of shortness of breath. She was also found to be hypotensive and dehydrated. Her chest x-ray showed recurrent right greater than left pleural effusions and we're consulted for the same. Venous Doppler of the bilateral lower extremities was negative for DVT. An ultrasound of the chest was performed and there is markings marked quite high in the right chest, report is pending. Presently, the patient is seen in consultation on the oncology floor. She is awake and alert in no acute distress. She is somewhat agitated over being readmitted here to the hospital. She is currently maintaining good O2 saturations in the 90s on room air. She's been afebrile. Hemodynamically stable. Not requiring any pressors. She is continued on her meropenem. White count 13.0. Lactic acid 1.2. Hemoglobin 10.2. AST 29, ALT 38, alk phos 104. ProBNP 446. Amylase 57 lipase 94. Troponins negative 1. Review of Systems 14 point review of system was conducted. All negative other than as mentioned in HPI. 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 10/02/2016 Postoperative abdominal abscess positive for Enterococcus faecalis and Clostridium perfringens. 10/10/2016 right pleural effusion status post thoracentesis without evidence of infection. History of Any Multi-Drug Resistant Organisms: None Reported Past Surgical History: Appendectomy, Bladder Surgery Additional Past Surgical History / Comment(s): pt states half liver, all of gallbladder and rerouted bile ducts and has a drainage system for bile. Breast biopsy, PICC line right upper arm Past Psychological History: No Psychological Hx Reported Smoking Status: Former smoker Past Alcohol Use History: Rare Additional Past Alcohol Use History / Comment(s): Patient smokes one pack of cigarettes per day and quit 37 years ago. She denies any medical marijuana, marijuana, street drug use. She drinks alcohol on a very rare ASIS. She is currently living alone as her day after [employer]. 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 She recently vacationed in [place] with a camper, her dog in her sister. She has been very active and only see a proximal a 6-8 months ago she was splitting logs with a log splitter on her property. Past Drug Use History: None Reported Medications and Allergies Home Medications Medication Instructions Recorded Confirmed Type Albuterol Sulfate [Proventil Hfa] 2 puff INHALATION RT-Q4H PRN 10/17/16 History Biotin 5,000 mcg PO DAILY@169910/17/16 10/17/16 History Bisacodyl [Dulcolax] 10 mg RECTAL DAILY PRN 10/17/16 10/17/16 History Calcium Citrate 500 mg PO BID@0800,1700 10/17/16 10/17/16 History Cholecalciferol [Vitamin D3] 5,000 unit PO DAILY@169910/17/16 10/17/16 History Furosemide [Lasix] 20 mg PO DAILY@0600 10/17/16 10/17/16 History Hydrocortisone Cream 1 applic TOPICAL BID 10/17/16 10/17/16 History [Hydrocortisone 1% Cream] Lactose-Reduced Food [Ensure Plus] 120 ml PO QID 10/17/16 10/17/16 History Magnesium Hydroxide [Milk of 2,400 mg PO DAILY PRN 10/17/16 10/17/16 History Magnesia] Meropenem [Merrem] 1 gm IVPB DIRECTED 10/17/16 10/17/16 History Mirtazapine [Remeron] 15 mg PO HS@2100 10/17/16 10/17/16 History Multivitamins, Thera [Multivitamin 1 tab PO DAILY@1700 10/17/16 10/17/16 History (formulary)] Na Phos,M-B/Na Phos,Di-Ba [Fleet 133 ml RECTAL DAILY PRN 10/17/16 10/17/16 History Adult] Omeprazole 20 mg PO BID@0600,1700 10/17/16 10/17/16 History Potassium Chloride [Klor-Con 20] 20 meq PO DAILY@1700 10/17/16 10/17/16 History Sennosides [Senokot] 17.2 mg PO BID@0800,1700 10/17/16 10/17/16 History busPIRone HCl [Buspar] 5 mg PO TID@0600,1400,2100 10/17/16 10/17/16 History diphenhydrAMINE [Benadryl] 25 mg PO Q6H PRN 10/17/16 10/17/16 History fentaNYL 50MCG/HR PATCH [Duragesic 1 patch TOPICAL Q72H 10/17/16 10/17/16 History 50MCG/HR] oxyCODONE HCL 15 mg PO Q4H PRN 10/17/16 10/17/16 History Allergies Allergy/AdvReac Type Severity Reaction Status Date / Time piperacillin [From Zosyn] Allergy Unknown Verified 10/17/16 11:45 tazobactam [From Zosyn] Allergy Unknown Verified 10/17/16 11:45 morphine AdvReac Confusion Verified 10/17/16 11:40 Physical Exam Vitals: Vital Signs Temp Pulse Pulse Resp BP BP Pulse Ox 10/18/16 07:00 98.1 F 107 H 16 99/52 94 L 10/17/16 18:51 97.6 F 107 H 20 107/58 99 10/17/16 16:46 111 H 20 97/56 98 10/17/16 16:00 112 H 20 95/53 98 10/17/16 15:12 113 H 16 97/56 98 10/17/16 14:04 117 H 20 107/59 97 10/17/16 13:56 119 H 18 97/53 97 10/17/16 11:31 98.7 F 110 H 22 95/52 96 Intake and Output 10/17/16 10/18/16 10/18/16 22:59 06:59 14:59 Intake Total 300 800 Balance 300 800 Intake: IV 300 800 Meropenem 1 gm In Sodium 100 Chloride 0.9% 100 ml @ 200 mls/hr IVPB Q8HR ALYSSA Rx#:[id number] Sodium Chloride 0.9% 1, 200 800 000 ml @ 100 mls/hr IV . Q10H STA Rx#:[id number] Other: Voiding Method Toilet # Voids 3 Weight 66.905 kg 66.905 kg GENERAL EXAM: Alert, fairly comfortable in no apparent distress. HEAD: Normocephalic. EYES: Normal reaction of pupils, equal size. NOSE: Clear with pink turbinates. THROAT: No erythema or exudates. NECK: No masses, no JVD. CHEST: No chest wall deformity. LUNGS: Equal air entry with crackles in the posterior bases diminished more so on the right.. CVS: S1 and S2 normal with no audible murmurs, regular rhythm. ABDOMEN: Biliary drain in place, normal bowel sounds, no guarding or rigidity. SPINE: No scoliosis or deformity SKIN: No rashes CENTRAL NERVOUS SYSTEM: No focal deficits, tone is normal in all 4 extremities. Extremities: There is no significant peripheral edema. No clubbing, no cyanosis. Peripheral pulses are intact. Results - Laboratory Findings CBC and BMP: 10/17/16 11:55 10/17/16 11:55 PT/INR, D-dimer PT 13.0 sec (9.0-12.0) H 10/17/16 11:55 INR 1.3 (<1.1) 10/17/16 11:55 Abnormal lab findings: Abnormal Labs 10/17/16 10/17/16 10/17/16 11:55 11:55 11:55 WBC 13.0 H RBC 3.10 L Hgb 10.2 L Hct 31.1 L MCV 100.3 H Neutrophils # 9.1 H Eosinophils # 1.4 H PT Sodium 133 L Glucose 119 H Calcium 7.5 L Total Bilirubin 2.0 H Total Creatine Kinase <20 L Total Protein 5.1 L Albumin 2.1 L 10/17/16 11:55 WBC RBC Hgb Hct MCV Neutrophils # Eosinophils # PT 13.0 H Sodium Glucose Calcium Total Bilirubin Total Creatine Kinase Total Protein Albumin - Diagnostic Findings Chest x-ray: image reviewed Assessment and Plan Plan: Impression: #1 Dyspnea secondary to bilateral pleural effusions right greater than left. #2 Recurrent pleural effusions with previous right thoracentesis on 10/10/2016. Fluid of which was negative for infection. Pathology unknown. #3 Cholangiocarcinoma status post right hepatectomy, , Kiara-en-Y hepaticojejunostomy, common bile duct resection performed at [facility] on 09/18/2016. #4 Postoperative abdominal abscess positive for Enterococcus faecalis and Clostridium perfringens with placement of drainage tube. Currently on meropenem via right upper extremity PICC line. #5 History of depression. #6 Osteoarthritis. #7 History of insomnia. #8 History of asthma, currently inactive and stable. #9 Remote history of tobacco dependence. Plan: The patient was seen and evaluated by Dr. Rinaldi. Her chest x-ray was reviewed. The patient is in no acute respiratory distress currently. Ultrasound was done however markings were quite high on the chest. Results of which are pending. If she did agree to thoracentesis would prefer interventional radiology perform it. Or perhaps a Pleurx catheter placement. However, the patient is reluctant to have any further procedures or interventions done here. She and her son are requesting transfer back to [facility] which is reasonable at this point. 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 If not transferred today, will continue with her current medications including nebulized treatments 4 times a day when necessary. Continue Merrem. We will continue to follow and make further recommendations based on her clinical status. Time with Patient: Greater than 30
[2016-10-18] MEDS ORDERED: CYCLOBENZAPRINE 5 MG TAB PO PRN (11:37)
[2016-10-18] MEDS ORDERED: LACTATED RINGERS 1,000 ML IV SCH (12:45)
--- NOTE | 2016-10-18 14:20 | P.CON ---
Consult Note - . Consult date: 10/18/16 Assessment/Plan:: This is a 71-year-old female with a significant past history of gallbladder cancer status post resection and partial liver resection done at [facility] on September 18. It sounds like patient had a complicated course and underwent a thoracentesis with removal of one and a half liters as well as a postop wound infection for which she has been on meropenem. Patient was discharged to [facility] on October 14 for subacute rehab. At the [facility] she developed a low blood pressure and shortness of breath for which she was sent to [facility] emergency center for evaluation. She was noted to be afebrile. Heart rate was elevated. White count was 13 and hemoglobin 10.1. GFR greater than 60 and albumin 2.1. Patient had chest x-ray that showed bilateral pleural effusions right greater than left with bibasilar atelectasis. Thoracentesis was discussed with the patient in the emergency center but she had refused. When discussed at this time, patient states that she is afraid that she is going have collapse of her lung based on something the physician said to her when she was having her last thoracentesis well at [place]. Ultrasound of the lower extremities was negative for DVT. Consults are in place for cardiology, general surgeon and pulmonary medicine. Patient does state that she knows that there is fluid in her lungs and is afraid to undergo the thoracentesis. She states her blood pressure is always low but this was lower than normal. She denies any symptoms with this low blood pressure. He should also states that she has had increased edema to the lower extremities and on her transport to [facility] her lower leg started to weep for which dressings have been placed. She also states that while she was at [place] she did have a rash and itching to her legs especially in the thighs bilaterally. She is on Lasix 20 mg IV every 8 hours which is a continued medication for [facility]. Please see the consult note as dictated by COTTON MACHINE OPERATOR Mrs Sabrina Josélalo. This pleasant woman has a significant difficulty of her gallbladder cancer. No having ongoing complications. She's having difficulty some lower extremity edema. The pathophysiology as described to the patient and her family members. She did well to have some compression. She is on meropenem and that will continue as per her care team from [place]. Does appear with her current acute changes she will be transferred back to [place] this point I'm for ongoing care. I agree with the evaluation assessment and plan as dictated by COTTON MACHINE OPERATOR Mrs Sabrina Olguin.
--- NOTE | 2016-10-18 15:42 | ECHOF ---
Referral Reason:assess LV function MEASUREMENTS -------- HEIGHT: 152.4 cm WEIGHT: 66.7 kg BP: 107/58 RVIDd: 2.8 cm (< 3.3) IVSd: 0.9 cm (0.6 - 1.1) LVIDd: 3.3 cm (3.9 - 5.3) LVPWd: 1.0 cm (0.6 - 1.1) IVSs: 1.5 cm LVIDs: 1.9 cm LVPWs: 1.4 cm LAESV Index (A-L): 14.49 ml/m Ao Diam: 2.3 cm (2.0 - 3.7) AV Cusp: 1.4 cm (1.5 - 2.6) LA Diam: 2.0 cm (2.7 - 3.8) MV EXCURSION: 16.920 mm (> 18.000) MV EF SLOPE: 126 mm/s (70 - 150) EPSS: 0.2 cm MV E Margarito: 0.84 m/s MV DecT: 301 ms MV A Margarito: 1.03 m/s MV E/A Ratio: 0.82 RAP: 5.00 mmHg RVSP: 28.72 mmHg FINDINGS -------- Resting tachycardia (HR>100bpm). This was a technically adequate study. LV size, wall thickness and systolic function are normal, with an EF greater than 55%. Overall left ventricular systolic function is normal with, an EF between 60 - 65 %. The right ventricle is normal in size and function. Normal LA size by volume 22+/-6 ml/m2. The right atrium is normal in size. Aortic valve is trileaflet and is mildly thickened. There is no evidence of aortic regurgitation. There is no evidence of aortic stenosis. The mitral valve leaflets are mildly thickened. There is trace to mild mitral regurgitation. Trace tricuspid regurgitation present. There is no evidence of pulmonary hypertension. The right ventricular systolic pressure, as measured by Doppler, is 28.72mmHg. Pulmonic valve appears structurally normal. The aortic root size is normal. IVC Not well visulized. There is a trivial pericardial effusion present. CONCLUSIONS -------- 1. Resting tachycardia (HR>100bpm). 2. The aortic root size is normal. 3. IVC Not well visulized. 4. There is a trivial pericardial effusion present. 5. Overall left ventricular systolic function is normal with, an EF between 60 - 65 %. 6. Normal LA size by volume 22+/-6 ml/m2. 7. Aortic valve is trileaflet and is mildly thickened. 8. The mitral valve leaflets are mildly thickened. 9. There is trace to mild mitral regurgitation. 10. Trace tricuspid regurgitation present. 11. There is no evidence of pulmonary hypertension. 12. The right ventricular systolic pressure, as measured by Doppler, is 28.72mmHg. FRONT DESK: Miki Kerr RDCS
[2016-10-18] MEDS ORDERED: POTASSIUM CHLORIDE ER 20 MEQ TAB.ER PO SCH (17:00)
[2016-10-18] MEDS ORDERED: CHOLECALCIFEROL 1,000 UNIT TAB PO SCH (17:00)
[2016-10-18] MEDS ORDERED: NON-FORMULARY DRUG (Biotin [Biotin] 5,000 MCG) PO SCH (17:00)
[2016-10-18] MEDS ORDERED: MULTIVITAMINS, THERA 1 EACH TAB PO SCH (17:00)
--- NOTE | 2016-10-19 06:58 | DS ---
DATE OF ADMISSION: 10/17/2016 DATE OF DISCHARGE: 10/18/2016 FINAL DIAGNOSES: 1. Hypotension multifactorial, could be from hypoalbuminemia, decreased oral intake. 2. Pleural effusion, probably postoperative. 3. ( ) probably from hypoalbuminemia from decreased oral intake. 4. Status post cancer of the gallbladder followed by gallbladder and half the liver resection. Removed September 18 at [place]. 5. Chronic insomnia. 6. Depression not otherwise specified. 7. Biliary duct drain in place. 8. Primary osteoarthritis of multiple joints, bilaterally. 9. Mild persistent asthma. CONSULTATIONS: 1. Dr. Rinaldi from Pulmonary. 2. Dr. Cordova from Infectious Disease. 3. Dr. Wander Lora from Cardiology. HOSPITAL COURSE: This is a patient of Dr. Cooper who on September 18 underwent surgery for gallbladder cancer at [facility]. Gallbladder and half the liver were removed followed by systemic infection for which she is on IV meropenem. Also has got bile drain in place. The patient presented with hypotension and also found significant fluid that could be postoperative. Patient. BNP is not too bad. Blood pressure running a bit on the low side. Initially I did give the patient some Lasix then stopped the same and after discussion with transfer team from [place] decided to give the patient some fluids. Patient wants further care to be done at [facility]. She did not want any fluid to be tapped here as offered by Dr. Rinaldi. I did talk to the patient and family. Keen to move to the other place and that is [facility] where she had the surgery done. I spoke to Dr. Almaguer from the transplant team, who accepted the patient. On examination: LUNGS: Decreased breath sounds. CARDIOVASCULAR: First and second sounds normal. Edema is present. Patient had a 2-D echocardiogram showing EF 60 to 65%. The patient's ultrasound of the chest shows significant right pleural effusion. Venous Doppler negative for DVT. DISCHARGE MEDICATIONS: 1. Proventil 2 puffs q.4 p.r.n. 2. Biotin 5000 mcg p.o. daily. 3. Dulcolax 10 mg rectal daily p.r.n. 4. Calcium 500 mg p.o. daily. 5. Vitamin D3 5000 units p.o. daily. 6. Lasix 20 mg p.o. daily. 7. Hydrocortisone 1% topical b.i.d. 8. Ensure Plus 120 mL p.o. q.i.d. 9. Milk of magnesia 25 mg p.o. daily. 10. Merrem 1 gram IV piggyback as directed. 11. Remeron 50 mg p.o. q.h.s. 12. Multivitamin 1 tablet p.o. daily. 13. Fleets enemas p.r.n. 14. Omeprazole 20 mg b.i.d. 15. Potassium 20 mEq p.o. daily. 16. Senokot 17.2 mg p.o. b.i.d. 17. BuSpar 5 mg p.o. t.i.d. 18. Benadryl 25 mg q.6 p.r.n. 19. Fentanyl 50 mcg patch q.72h. 20. Oxycodone 15 mg p.o. q.4 p.r.n. 21. Meropenem 1 gram IV piggyback q.8. DISPOSITION: [facility] under the service of Dr. Almaguer who is accepting physician of the transplant team. Discharge planning more than 35 minutes including discussion.
== END 2016-10-18 15:30 | disposition short-term general hospital (02) | DRG 187 ==
LOC: EC 11:18 → 5ONC 18:13
PROVIDERS: ADMIT Hospitalist; ATTEND Hospitalist
DX: J90 Pleural effusion, not elsewhere classified (principal); C23 Malignant neoplasm of gallbladder; I95.89 Other hypotension; Z76.82 Awaiting organ transplant status; E88.09 Other disorders of plasma-protein metabolism, not elsewhere classified; E87.70 Fluid overload, unspecified; T81.4XXA Infection following a procedure, initial encounter; E86.0 Dehydration; R60.0 Localized edema; J45.30 Mild persistent asthma, uncomplicated; T81.4XXD Infection following a procedure, subsequent encounter; R00.0 Tachycardia, unspecified; F51.04 Psychophysiologic insomnia; R05 Cough; R06.02 Shortness of breath; F32.9 Major depressive disorder, single episode, unspecified; M19.91 Primary osteoarthritis, unspecified site; Z87.891 Personal history of nicotine dependence; Z79.899 Other long term (current) drug therapy; Z88.1 Allergy status to other antibiotic agents; Z88.5 Allergy status to narcotic agent; Z86.19 Personal history of other infectious and parasitic diseases; Z87.19 Personal history of other diseases of the digestive system; Z87.09 Personal history of other diseases of the respiratory system; Z87.2 Personal history of diseases of the skin and subcutaneous tissue; Z79.2 Long term (current) use of antibiotics; Z79.891 Long term (current) use of opiate analgesic; Z90.49 Acquired absence of other specified parts of digestive tract; Z95.828 Presence of other vascular implants and grafts; Z96.89 Presence of other specified functional implants; Z91.19 Patient's noncompliance with other medical treatment and regimen
CPT/HCPCS: 36415; 71020; 76604; 80053; 82150; 82550; 82553; 83605; 83690; 83735; 83880; 84484; 85025; 85610; 85730; 87040; 93005; 93306; 93970; 94640; 96361; 96374; 96375; 96376; 99285

== ENCOUNTER 2017-01-10 13:22 | Inpatient (IN) | payer MEDICARE ==
[2017-01-10] MEDS ORDERED: HYDROmorphone 1 MG/ML 1 ML SYRINGE IVP STA ×2 (14:11→15:48)
[2017-01-10] MEDS ORDERED: ONDANSETRON 4 MG/2 ML VIAL IVP STA (14:11)
--- NOTE | 2017-01-10 14:15 | ED ---
General Adult HPI - General Chief complaint: Shortness of Breath Stated complaint: SOB/Fluid retention Time Seen by Provider: 01/10/17 13:35 Source: patient, family, RN notes reviewed Mode of arrival: wheelchair Limitations: no limitations - History of Present Illness Initial comments: This is a 71-year-old female who presents emergency Department with a past medical history significant for gallbladder cancer. Patient states she's had her gallbladder removed part of her liver removed and a partial Kiara-en-Y. Patient comes in today after having had for a half liters removed from her abdomen on Friday. Patient comes in Any of abdominal and back pain. Patient states his been ongoing for months but it is gotten worse the last couple of days. Patient also states the edema on her legs has gone down since she had a paracentesis 2 days ago but her abdomen is filling up again. Patient states she is not short of breath but sometimes is difficult to breathe because of her the size of her abdomen. Patient denies any chest pain palpitations - Related Data Home Medications Medication Instructions Recorded Confirmed Biotin 5,000 mcg PO DAILY@1700 10/17/16 01/10/17 Bisacodyl [Dulcolax] 10 mg RECTAL DAILY PRN 10/17/16 01/10/17 Calcium Citrate 500 mg PO BID 10/17/16 01/10/17 Cholecalciferol [Vitamin D3] 5,000 unit PO DAILY 10/17/16 01/10/17 Furosemide [Lasix] 40 mg PO BID 10/17/16 01/10/17 Multivitamins, Thera [Multivitamin 1 tab PO DAILY 10/17/16 01/10/17 (formulary)] Potassium Chloride [Klor-Con 20] 20 meq PO Q48H 10/17/16 01/10/17 ALPRAZolam [Xanax] 0.25 mg PO Q8HR 01/10/17 01/10/17 Acetaminophen [Tylenol] 325 mg PO Q4H PRN 01/10/17 01/10/17 Albuterol Inhaler [Ventolin Hfa 2 puff INHALATION RT-Q4H PRN 01/10/17 01/10/17 Inhaler] Docusate [Colace] 100 mg PO BID 01/10/17 01/10/17 Flecainide [Tambocor] 50 mg PO Q12HR 01/10/17 01/10/17 Inulin/Chromium Picolinate [Fiber 1 tab PO DAILY 01/10/17 01/10/17 Gummies Chew] LORazepam [Ativan] 0.5 mg PO HS 01/10/17 01/10/17 Levothyroxine Sodium [Synthroid] 125 mcg PO DAILY 01/10/17 01/10/17 Methadone HCl [Dolophine HCl] 5 mg PO Q4HR 01/10/17 01/10/17 Methadone HCl [Dolophine HCl] 15 mg PO Q8HR 01/10/17 01/10/17 Metoclopramide HCl [Reglan] 5 mg PO Q8HR 01/10/17 01/10/17 Metoprolol Tartrate [Lopressor] 12.5 mg PO DAILY 01/10/17 01/10/17 Mirtazapine [Remeron] 30 mg PO HS 01/10/17 01/10/17 Pantoprazole [Protonix] 40 mg PO DAILY 01/10/17 01/10/17 Spironolactone [Aldactone] 25 mg PO DAILY 01/10/17 01/10/17 busPIRone HCL [Buspar] 7.5 mg PO TID 01/10/17 01/10/17 guaiFENesin [Mucinex] 600 mg PO DAILY PRN 01/10/17 01/10/17 Allergies Allergy/AdvReac Type Severity Reaction Status Date / Time piperacillin [From Zosyn] Allergy Unknown Verified 01/10/17 14:55 tazobactam [From Zosyn] Allergy Unknown Verified 01/10/17 14:55 morphine AdvReac Confusion Verified 01/10/17 14:55 Review of Systems ROS Statement: Those systems with pertinent positive or pertinent negative responses have been documented in the HPI. ROS Other: All systems not noted in ROS Statement are negative. 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 10/02/2016 Postoperative abdominal abscess positive for Enterococcus faecalis and Clostridium perfringens. 10/10/2016 right pleural effusion status post thoracentesis without evidence of infection. History of Any Multi-Drug Resistant Organisms: None Reported Past Surgical History: Appendectomy, Bladder Surgery Additional Past Surgical History / Comment(s): pt states half liver, all of gallbladder and rerouted bile ducts and has a drainage system for bile. Breast biopsy, PICC line right upper arm Past Psychological History: No Psychological Hx Reported Smoking Status: Former smoker Past Alcohol Use History: Rare Past Drug Use History: None Reported General Exam - General Exam Comments Initial Comments: GENERAL: Patient is well-developed and well-nourished. Patient is nontoxic and well- hydrated and is in mild distress. ENT: Neck is soft and supple. No significant lymphadenopathy is noted. Oropharynx is clear. Moist mucous membranes. Neck has full range of motion without eliciting any pain. EYES: The sclera were anicteric and conjunctiva were pink and moist. Extraocular movements were intact and pupils were equal round and reactive to light. Eyelids were unremarkable. PULMONARY: Unlabored respirations. Good breath sounds bilaterally. No audible rales rhonchi or wheezing was noted. CARDIOVASCULAR: There is a regular rate and rhythm without any murmurs gallops or rubs. ABDOMEN: Abdomen is distended consistent with some ascites.. SKIN: Skin is clear with no lesions or rashes and otherwise unremarkable. NEUROLOGIC: Patient is alert and oriented x3. Cranial nerves II through XII are grossly intact. Motor and sensory are also intact. Normal speech, volume and content. Symmetrical smile. MUSCULOSKELETAL: Normal extremities with adequate strength and full range of motion. 2+ edema bilaterally on the legs LYMPHATICS: No significant lymphadenopathy is noted PSYCHIATRIC: Normal psychiatric evaluation. Limitations: no limitations Course Vital Signs 01/10/17 01/10/17 13:34 15:14 Temperature 99.0 F Pulse Rate 90 85 Respiratory 20 18 Rate Blood Pressure 93/53 99/57 O2 Sat by Pulse 98 97 Oximetry Medical Decision Making - Medical Decision Making EKG shows normal sinus rhythm at 87 bpm ID interval 226 QRS is 72 QT interval 376 QTC is 452 per patient's EKG shows no ST segment elevation or depression or T wave abnormalities are noted Patient remains in significant pain in her abdomen and her back I reviewed her CAT scan from November. Spoke Dr. Rojo he agreed to admit the patient he wants the oncologist on consult I consult the oncologist. I controlled the patient's pain in the emergency department and I will order pain meds for the floor. - Lab Data Result diagrams: 01/10/17 14:25 01/10/17 14:25 Lab Results 01/10/17 01/10/17 01/10/17 Range/Units 14:25 14:25 14:25 WBC 9.9 (3.8-10.6) k/uL RBC 3.92 (3.80-5.40) m/uL Hgb 10.6 L (11.4-16.0) gm/dL Hct 34.0 (34.0-46.0) % MCV 86.8 (80.0-100.0) fL MCH 27.1 (25.0-35.0) pg MCHC 31.2 (31.0-37.0) g/dL RDW 15.4 (11.5-15.5) % Plt Count 315 (150-450) k/uL Neutrophils % 79 % Lymphocytes % 10 % Monocytes % 6 % Eosinophils % 3 % Basophils % 1 % Neutrophils # 7.8 H (1.3-7.7) k/uL Lymphocytes # 1.0 (1.0-4.8) k/uL Monocytes # 0.6 (0-1.0) k/uL Eosinophils # 0.3 (0-0.7) k/uL Basophils # 0.1 (0-0.2) k/uL PT 11.3 (9.0-12.0) sec INR 1.1 (<1.2) APTT 26.7 (22.0-30.0) sec Sodium 132 L (137-145) mmol/L Potassium 4.0 (3.5-5.1) mmol/L Chloride 96 L (98-107) mmol/L Carbon Dioxide 30 (22-30) mmol/L Anion Gap 6 mmol/L BUN 11 (7-17) mg/dL Creatinine 0.53 (0.52-1.04) mg/dL Est GFR (MDRD) Af Amer >60 (>60 ml/min/1.73 sqM) Est GFR (MDRD) Non-Af >60 (>60 ml/min/1.73 sqM) Glucose 90 (74-99) mg/dL Calcium 8.1 L (8.4-10.2) mg/dL Total Bilirubin 0.4 (0.2-1.3) mg/dL AST 47 H (14-36) U/L ALT 46 (9-52) U/L Alkaline Phosphatase 287 H (38-126) U/L Total Protein 5.3 L (6.3-8.2) g/dL Albumin 2.6 L (3.5-5.0) g/dL Amylase <30 L (30-110) U/L Lipase 16 L (23-300) U/L Urine Color Urine Appearance (Clear) Urine pH (5.0-8.0) Ur Specific [place] (1.001-1.035) Urine Protein (Negative) Urine Glucose (UA) (Negative) Urine Ketones (Negative) Urine Blood (Negative) Urine Nitrite (Negative) Urine Bilirubin (Negative) Urine Urobilinogen (<2.0) mg/dL Ur Leukocyte Esterase (Negative) Urine RBC (0-5) /hpf Urine WBC (0-5) /hpf Ur Squamous Epith Cells (0-4) /hpf Urine Mucus (None) /hpf 01/10/17 Range/Units 14:44 WBC (3.8-10.6) k/uL RBC (3.80-5.40) m/uL Hgb (11.4-16.0) gm/dL Hct (34.0-46.0) % MCV (80.0-100.0) fL MCH (25.0-35.0) pg MCHC (31.0-37.0) g/dL RDW (11.5-15.5) % Plt Count (150-450) k/uL Neutrophils % % Lymphocytes % % Monocytes % % Eosinophils % % Basophils % % Neutrophils # (1.3-7.7) k/uL Lymphocytes # (1.0-4.8) k/uL Monocytes # (0-1.0) k/uL Eosinophils # (0-0.7) k/uL Basophils # (0-0.2) k/uL PT (9.0-12.0) sec INR (<1.2) APTT (22.0-30.0) sec Sodium (137-145) mmol/L Potassium (3.5-5.1) mmol/L Chloride (98-107) mmol/L Carbon Dioxide (22-30) mmol/L Anion Gap mmol/L BUN (7-17) mg/dL Creatinine (0.52-1.04) mg/dL Est GFR (MDRD) Af Amer (>60 ml/min/1.73 sqM) Est GFR (MDRD) Non-Af (>60 ml/min/1.73 sqM) Glucose (74-99) mg/dL Calcium (8.4-10.2) mg/dL Total Bilirubin (0.2-1.3) mg/dL AST (14-36) U/L ALT (9-52) U/L Alkaline Phosphatase (38-126) U/L Total Protein (6.3-8.2) g/dL Albumin (3.5-5.0) g/dL Amylase (30-110) U/L Lipase (23-300) U/L Urine Color Yellow Urine Appearance Clear (Clear) Urine pH 6.0 (5.0-8.0) Ur Specific [place] 1.018 (1.001-1.035) Urine Protein Negative (Negative) Urine Glucose (UA) Negative (Negative) Urine Ketones Trace H (Negative) Urine Blood Negative (Negative) Urine Nitrite Negative (Negative) Urine Bilirubin Negative (Negative) Urine Urobilinogen <2.0 (<2.0) mg/dL Ur Leukocyte Esterase Trace H (Negative) Urine RBC 1 (0-5) /hpf Urine WBC 2 (0-5) /hpf Ur Squamous Epith Cells 2 (0-4) /hpf Urine Mucus Occasional H (None) /hpf Disposition Clinical Impression: History of bile duct cancer, Abdominal pain, Ascites, Pedal edema Disposition: ADMITTED IP TO THIS [facility] Referrals: Raffaele Cooper DO [Primary Care Provider] - 1-2 days Time of Disposition: 16:21
[2017-01-10 14:37] LABS: Basophils # (A) 0.1 k/uL (0-0.2); Basophils % (A) 1 %; CH 27.6; CHCM 31.9; Eosinophils # (A) 0.3 k/uL (0-0.7); Eosinophils % (A) 3 %; HDW 2.57; HGB 10.6 gm/dL (11.4-16.0); Luc # (Auto) 0.17; Luc % (Auto) 2; Lymphocytes % (A) 10 %; MCH 27.1 pg (25.0-35.0); MCHC 31.2 g/dL (31.0-37.0); MCV 86.8 fL (80.0-100.0); Mean Platelet Volume 6.9; Monocytes # (A) 0.6 k/uL (0-1.0); Monocytes % (A) 6 %; Neutrophils # (A) 7.8 k/uL (1.3-7.7); Neutrophils % (A) 79 %; RBC 3.92 m/uL (3.80-5.40); RDW 15.4 % (11.5-15.5); WBC 9.9 k/uL (3.8-10.6); WBC (Perox) 10.25
[2017-01-10 14:46] LABS: ALT 46 U/L (9-52); AST 47 U/L (14-36); Alkaline Phosphatase 287 U/L (38-126); Amylase <30 U/L (30-110); Anion Gap 6 mmol/L; Blood Urea Nitrogen 11 mg/dL (7-17); Calcium 8.1 mg/dL (8.4-10.2); Carbon Dioxide 30 mmol/L (22-30); Chloride 96 mmol/L (98-107); Glucose 90 mg/dL (74-99); Non-African American GFR(MDRD) >60 (>60 ml/min/1.73 sqM); Sodium 132 mmol/L (137-145); Total Bilirubin 0.4 mg/dL (0.2-1.3); Total Protein 5.3 g/dL (6.3-8.2)
[2017-01-10 14:54] LABS: INR 1.1 (<1.2); Partial Thromboplastin Time 26.7 sec (22.0-30.0); Prothrombin Time 11.3 sec (9.0-12.0)
[2017-01-10 15:14] LABS: Appearance,Urine Clear (Clear); Bilirubin,Urine Negative (Negative); Glucose,Urine (UA) Negative (Negative); Ketones,Urine Trace (Negative); Leukocyte Esterase,Urine Trace (Negative); Mucus,Urine Occasional /hpf; Nitrite,Urine Negative (Negative); Particle Count 2704; Protein,Urine Negative (Negative); RBC,Urine 1 /hpf (0-5); Specific Gravity,Urine 1.018 (1.001-1.035); Squamous Epithelial Cell,Urine 2 /hpf (0-4); UA Billing (MACRO vs. MICRO) MICRO; Urobilinogen,Urine <2.0 mg/dL (<2.0); WBC,Urine 2 /hpf (0-5)
[2017-01-10] MEDS ORDERED: MAG HYDROX/AL HYDROX/SIMETH 30 ML CUP PO STA (16:32)
[2017-01-10] MEDS ORDERED: ALPRAZolam 0.25 MG TAB PO PRN (18:13)
[2017-01-10] MEDS: METHADONE 5 MG TAB PO SCH (18:33)
[2017-01-10 20:29] VITALS: BMI 23.8
[2017-01-10] MEDS: HYDROmorphone 1 MG/ML 1 ML SYRINGE IVP PRN (20:38)
[2017-01-10] MEDS: ONDANSETRON 4 MG/2 ML VIAL IVP PRN (20:38)
[2017-01-10] MEDS: METHADONE 5 MG TAB PO PRN (22:36)
[2017-01-11] MEDS: HYDROmorphone 1 MG/ML 1 ML SYRINGE IVP PRN ×4 (00:10→14:20)
[2017-01-11] MEDS: METHADONE 5 MG TAB PO SCH ×3 (00:13→08:21)
[2017-01-11] MEDS: METHADONE 5 MG TAB PO PRN (06:07)
[2017-01-11] MEDS ORDERED: METHADONE 5 MG TAB PO PRN (08:25)
[2017-01-11] MEDS: METHADONE 10 MG TAB PO SCH ×2 (08:53→16:19)
[2017-01-11] MEDS: ONDANSETRON 4 MG/2 ML VIAL IVP PRN ×2 (08:56→16:23)
[2017-01-11] MEDS ORDERED: BISACODYL 10 MG SUPP RECTAL PRN (13:16)
[2017-01-11] MEDS: SPIRONOLACTONE 25 MG TAB PO SCH ×2 (14:20→21:32)
[2017-01-11] MEDS: FUROSEMIDE 10 MG/ML 4 ML VIAL IV SCH ×2 (14:20→21:33)
[2017-01-11] MEDS: busPIRone HCl 5 MG TAB PO SCH ×2 (16:18→23:27)
--- NOTE | 2017-01-11 17:17 | P.HPIM ---
History of Present Illness H&P Date: 01/11/17 Chief Complaint: Abdominal pain and back pain. This is a 71-year-old that comes in to the hospital with worsening lower back pain and abdominal pain. Patient has a history of gallbladder cancer underwent surgical resection at [facility] in August with the partial hepatic resection at that time as well. Patient thereafter had IVC occlusion which was thought to be due to growth of the liver. Patient thereafter had an IVC stent placed Patient was seen previously on her service with hypoalbuminemia. Patient apparently underwent 2 cycles of paracentesis with close to 8 L of fluid being removed patient was started on a small dose of Lasix and spironolactone or graft patient does not know if the ascitic fluid was positive for cancer She does state that there is a lymph node that was positive for cancer Patient has a port placed and has not started chemotherapy Apparently there was a MRI of the lumbar spine that was done initially concerning for a metastatic spot however he was later reported that it was a large inflammatory lymph node compressing on the spinal cord with nerve compression At this time patient states that her abdomen has been worsening hence came in to the hospital for further evaluation and also wants to find a new oncologist Patient was started on methadone while at [facility] At this time denies having any headaches blurry vision chest pain urinary urgency or frequency Review of Systems All systems: negative (Noted in HPI) Past Medical History Past Medical History: Asthma, Cancer, Osteoarthritis (OA) Additional Past Medical History / Comment(s): Gallbladder adenocarcinoma 2016 Status post right hepatectomy, Kiara-en-Y hepaticojejunostomy, common bile duct resection. 10/02/2016 Postoperative abdominal abscess positive for Enterococcus faecalis and Clostridium perfringens. 10/10/2016 right pleural effusion status post thoracentesis without evidence of infection. History of Any Multi-Drug Resistant Organisms: None Reported Past Surgical History: Appendectomy, Bladder Surgery Additional Past Surgical History / Comment(s): pt states half liver, all of gallbladder and rerouted bile ducts and has a drainage system for bile. Breast biopsy, PICC line right upper arm Past Psychological History: No Psychological Hx Reported Smoking Status: Former smoker Past Alcohol Use History: Rare Additional Past Alcohol Use History / Comment(s): Patient smokes one pack of cigarettes per day and quit 37 years ago. She denies any medical marijuana, marijuana, street drug use. She drinks alcohol on a very rare ASIS. She is currently living alone as her day after [place]. 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 She recently vacationed in [place] with a camper, her dog in her sister. She has been very active and only see a proximal a 6-8 months ago she was splitting logs with a log splitter on her property. Past Drug Use History: None Reported - Past Family History Mother Family Medical History: Cancer Additional Family Medical History / Comment(s): pancreatic cancer Medications and Allergies Home Medications Medication Instructions Recorded Confirmed Type Biotin 5,000 mcg PO DAILY@1700 10/17/16 01/10/17 History Bisacodyl [Dulcolax] 10 mg RECTAL DAILY PRN 10/17/16 01/10/17 History Calcium Citrate 500 mg PO BID 10/17/16 01/10/17 History Cholecalciferol [Vitamin D3] 5,000 unit PO DAILY 10/17/16 01/10/17 History Furosemide [Lasix] 40 mg PO BID 10/17/16 01/10/17 History Multivitamins, Thera [Multivitamin 1 tab PO DAILY 10/17/16 01/10/17 History (formulary)] Potassium Chloride [Klor-Con 20] 20 meq PO Q48H 10/17/16 01/10/17 History ALPRAZolam [Xanax] 0.25 mg PO Q8HR 01/10/17 01/10/17 History Acetaminophen [Tylenol] 325 mg PO Q4H PRN 01/10/17 01/10/17 History Albuterol Inhaler [Ventolin Hfa 2 puff INHALATION RT-Q4H PRN 01/10/17 01/10/17 History Inhaler] Docusate [Colace] 100 mg PO BID 01/10/17 01/10/17 History Flecainide [Tambocor] 50 mg PO Q12HR 01/10/17 01/10/17 History Inulin/Chromium Picolinate [Fiber 1 tab PO DAILY 01/10/17 01/10/17 History Gummies Chew] LORazepam [Ativan] 0.5 mg PO HS 01/10/17 01/10/17 History Levothyroxine Sodium [Synthroid] 125 mcg PO DAILY 01/10/17 01/10/17 History Methadone HCl [Dolophine HCl] 5 mg PO Q4HR 01/10/17 01/10/17 History Methadone HCl [Dolophine HCl] 15 mg PO Q8HR 01/10/17 01/10/17 History Metoclopramide HCl [Reglan] 5 mg PO Q8HR 01/10/17 01/10/17 History Metoprolol Tartrate [Lopressor] 12.5 mg PO DAILY 01/10/17 01/10/17 History Mirtazapine [Remeron] 30 mg PO HS 01/10/17 01/10/17 History Pantoprazole [Protonix] 40 mg PO DAILY 01/10/17 01/10/17 History Spironolactone [Aldactone] 25 mg PO DAILY 01/10/17 01/10/17 History busPIRone HCL [Buspar] 7.5 mg PO TID 01/10/17 01/10/17 History guaiFENesin [Mucinex] 600 mg PO DAILY PRN 01/10/17 01/10/17 History Allergies Allergy/AdvReac Type Severity Reaction Status Date / Time piperacillin [From Zosyn] Allergy Unknown Verified 01/10/17 14:55 tazobactam [From Zosyn] Allergy Unknown Verified 01/10/17 14:55 morphine AdvReac Confusion Verified 01/10/17 14:55 Physical Exam Vitals: Vital Signs Temp Pulse Pulse Resp BP BP Pulse Ox 01/11/17 15:00 98.2 F 90 18 105/57 96 01/11/17 07:00 98.1 F 88 16 96/53 96 01/11/17 06:03 89 103/64 01/11/17 00:04 71 16 100/60 96 01/11/17 00:00 71 16 01/10/17 22:34 80 16 100/61 96 01/10/17 21:25 97.9 F 85 16 103/65 96 01/10/17 20:16 91 16 101/61 94 L 01/10/17 17:38 97.7 F 92 18 100/56 95 Intake and Output 01/11/17 01/11/17 01/11/17 06:59 14:59 22:59 Intake Total 600 Balance 600 Intake: IV 200 0.9 @20ml/hr 200 Oral 400 Other: Voiding Method Toilet # Voids 4 Weight 55.338 kg Patient Weight 01/12/17 06:59 Weight 55.338 kg Physical exam Gen. appearance oriented 3 in no distress Neck is supple no JVD Lungs good air entry clear to auscultation no rhonchi or wheezing Heart S1-S2 heard regular rate and rhythm no murmurs appreciated Abdomen is soft , distended Previous surgical scar noted Tenderness in the lumbar spine No organomegaly noted. Neurologically cranial nerves II-12 grossly intact no focal motor or sensory deficits noted Skin no abnormalities appreciated Results CBC & Chem 7: 01/10/17 14:25 01/10/17 14:25 Thrombosis Risk Factor Assmnt - Choose All That Apply Any of the Below Risk Factors Present?: No Other Risk Factors: No Each Risk Factor Represents 2 Points: Age 61-74 years Thrombosis Risk Factor Assessment Total Risk Factor Score: 2 Thrombosis Risk Factor Assessment Level: Very Low Risk Assessment and Plan Plan: 1. History of Gall bladder cancer 2. Ascites, due to hypoalbuminemia or due to cancer with peritoneal carcinomatosis 3. 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 Continue ongoing care could likely discharge the patient in the next 24 hours if her fluid status is improved
[2017-01-11] MEDS ORDERED: METHADONE 5 MG TAB PO SCH (18:14)
--- NOTE | 2017-01-11 20:37 | P.CONS ---
History of Present Illness - Reason for Consult Consult date: 01/11/17 - History of Present Illness This is 71 years FEMALE, with a chronic history of severe abdominal pain secondary to gallbladder cancer, status post partial resection of the liver , at [facility], , patient had sever ascites which required her to have paracentesis, removal of a liter of fluid done recently, also patient had hypoalbuminemia, she'll will be scheduled to have chemotherapy soon , currently she is complaining of severe epigastric and abdominal pain with radiation to the back, she was evaluated by the oncologist , he recommended celiac plexus block because of her pain is not managed with the current regimen which is methadone 20 mg 3 times a day, methadone 5 mg every 4 hours for breakthrough pain,, patient reported that she was treated in the past with fentanyl patch 50 g without any significant relief, she was treated with Ultram without any benefit, the pain is constant with radiation from the epigastric towards the right and left upper quadrants, it is still the pain with the pain medication is 6/10 increased to 10 over 10 Review of Systems Constitutional: Reports as per HPI, Reports anorexia, Reports chronic pain, Reports fatigue, Reports poor appetite, Reports weakness Cardiovascular: Reports edema, Reports leg edema Gastrointestinal: Reports abdominal pain, Reports loss of appetite Musculoskeletal: Reports low back pain Psychiatric: Reports depression, Reports insomnia Hematologic/Lymphatic: Reports as per HPI Allergic/Immunologic: Reports as per HPI Past Medical History Past Medical History: Asthma, Cancer, Osteoarthritis (OA) Additional Past Medical History / Comment(s): Gallbladder adenocarcinoma 2016 Status post right hepatectomy, Kiara-en-Y hepaticojejunostomy, common bile duct resection. 10/02/2016 Postoperative abdominal abscess positive for Enterococcus faecalis and Clostridium perfringens. 10/10/2016 right pleural effusion status post thoracentesis without evidence of infection. History of Any Multi-Drug Resistant Organisms: None Reported Past Surgical History: Appendectomy, Bladder Surgery Additional Past Surgical History / Comment(s): pt states half liver, all of gallbladder and rerouted bile ducts and has a drainage system for bile. Breast biopsy, PICC line right upper arm Past Psychological History: No Psychological Hx Reported Smoking Status: Former smoker Past Alcohol Use History: Rare Additional Past Alcohol Use History / Comment(s): Patient smokes one pack of cigarettes per day and quit 37 years ago. She denies any medical marijuana, marijuana, street drug use. She drinks alcohol on a very rare ASIS. She is currently living alone as her day after [place]. 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 She recently vacationed in [place] with a camper, her dog in her sister. She has been very active and only see a proximal a 6-8 months ago she was splitting logs with a log splitter on her property. Past Drug Use History: None Reported - Past Family History Mother Family Medical History: Cancer Additional Family Medical History / Comment(s): pancreatic cancer Medications and Allergies Home Medications Medication Instructions Recorded Confirmed Type Biotin 5,000 mcg PO DAILY@1700 10/17/16 01/10/17 History Bisacodyl [Dulcolax] 10 mg RECTAL DAILY PRN 10/17/16 01/10/17 History Calcium Citrate 500 mg PO BID 10/17/16 01/10/17 History Cholecalciferol [Vitamin D3] 5,000 unit PO DAILY 10/17/16 01/10/17 History Furosemide [Lasix] 40 mg PO BID 10/17/16 01/10/17 History Multivitamins, Thera [Multivitamin 1 tab PO DAILY 10/17/16 01/10/17 History (formulary)] Potassium Chloride [Klor-Con 20] 20 meq PO Q48H 10/17/16 01/10/17 History ALPRAZolam [Xanax] 0.25 mg PO Q8HR 01/10/17 01/10/17 History Acetaminophen [Tylenol] 325 mg PO Q4H PRN 01/10/17 01/10/17 History Albuterol Inhaler [Ventolin Hfa 2 puff INHALATION RT-Q4H PRN 01/10/17 01/10/17 History Inhaler] Docusate [Colace] 100 mg PO BID 01/10/17 01/10/17 History Flecainide [Tambocor] 50 mg PO Q12HR 01/10/17 01/10/17 History Inulin/Chromium Picolinate [Fiber 1 tab PO DAILY 01/10/17 01/10/17 History Gummies Chew] LORazepam [Ativan] 0.5 mg PO HS 01/10/17 01/10/17 History Levothyroxine Sodium [Synthroid] 125 mcg PO DAILY 01/10/17 01/10/17 History Methadone HCl [Dolophine HCl] 5 mg PO Q4HR 01/10/17 01/10/17 History Methadone HCl [Dolophine HCl] 15 mg PO Q8HR 01/10/17 01/10/17 History Metoclopramide HCl [Reglan] 5 mg PO Q8HR 01/10/17 01/10/17 History Metoprolol Tartrate [Lopressor] 12.5 mg PO DAILY 01/10/17 01/10/17 History Mirtazapine [Remeron] 30 mg PO HS 01/10/17 01/10/17 History Pantoprazole [Protonix] 40 mg PO DAILY 01/10/17 01/10/17 History Spironolactone [Aldactone] 25 mg PO DAILY 01/10/17 01/10/17 History busPIRone HCL [Buspar] 7.5 mg PO TID 01/10/17 01/10/17 History guaiFENesin [Mucinex] 600 mg PO DAILY PRN 01/10/17 01/10/17 History Allergies Allergy/AdvReac Type Severity Reaction Status Date / Time piperacillin [From Zosyn] Allergy Unknown Verified 01/10/17 14:55 tazobactam [From Zosyn] Allergy Unknown Verified 01/10/17 14:55 morphine AdvReac Confusion Verified 01/10/17 14:55 Physical Exam Vitals: Vital Signs Temp Pulse Resp BP Pulse Ox 01/11/17 15:00 98.2 F 90 18 105/57 96 01/11/17 07:00 98.1 F 88 16 96/53 96 01/11/17 06:03 89 103/64 01/11/17 00:04 71 16 100/60 96 01/11/17 00:00 71 16 01/10/17 22:34 80 16 100/61 96 01/10/17 21:25 97.9 F 85 16 103/65 96 Intake and Output 01/11/17 01/11/17 01/11/17 06:59 14:59 22:59 Intake Total 600 680 Balance 600 680 Intake: IV 200 0.9 @20ml/hr 200 Oral 400 680 Other: Voiding Method Toilet Toilet # Voids 4 3 Weight 55.338 kg Patient Weight 01/12/17 06:59 Weight 55.338 kg Physical Examinations : 1-Constitutional : Cooperative , not in acute distress . 2-HEENT : nech ; supple , no Lymphadenopathy , no Thyromegaly , :eyes , no icterus, no photophobia . ENT : , normal oropharynx , no Thrush 3- Respiratory : Chest clear to auscultations Bilaterally , no wheezing . 4- Cardiovascular : regular rate and rhythem , S1 , S2 , no S3 , no S4. 5- Gastrointestinal: abdomen soft ++tenderness , distended , after his surgical scar mid abdomen . 6- Genitourinary : Defferred . 7-Integumentary : No cellulitis , no ulcers , normal skin turgor , no cyanotic . 8- neurologic : Cranial nerve II to XII intact , no focal neurological deffecit 9-psychatric : alert , oriented X 3 , appropriate affect , intact judgment and insight . 10-Lymphatic : ++ Edema in the lower extremity 11- musculoskeltal: Lumber spine moter stegnth lower extremities ,thigh and legs 4/5 Right side , 5/5 Left side Results CBC & Chem 7: 01/10/17 14:25 01/10/17 14:25 Assessment and Plan Plan: Assessment and plan= 1-history of gallbladder cancer, heart is post partial resection of the liver, patient in the process of getting chemotherapy, and acute on chronic severe abdominal pain, currently patient pain is not well controlled, and she is having some difficlties sleeping at night, , she'll to be good candidate for celiac plexus block, [place] with the patient the risk and benefits and alternative, she preferred not to proceed with the celiac plexus block, the extent than the celiac plexus block can be done as an outpatient, if she changed her mind , and I will recommend to discontinue methadone 5 mg, the patient on oxycodone 10 mg every 4 hours when necessary for breakthrough pain, continue methadone 20 mg every 8 hours, and patient could benefit from desipramine 25 mg daily at bedtime, will be adjuvant for sleep, and pain , and improve her mood. Time with Patient: Greater than 30
[2017-01-11] MEDS ORDERED: DESIPRAMINE 25 MG TAB PO SCH (21:00)
[2017-01-11] MEDS: FLECAINIDE 50 MG TAB PO SCH (21:34)
--- NOTE | 2017-01-12 00:31 | P.CONS ---
History of Present Illness - Reason for Consult Consult date: 01/11/17 - History of Present Illness The patient is a 71-year-old lady, who states that she was noted to have a lesion in the gallbladder, when in [place] for the winter. She came back to [place], and was diagnosed with gallbladder cancer. She had surgery at [facility] in late 09/09, consisting of a cholecystectomy, partial hepatectomy, biliary bypass with partial Kiara-en-Y. Postsurgical course was complicated by infection, poor appetite, as well as subsequent development of ascites requiring drainage 2. Most recent drainage was last week. She is also had to have pleural effusion drained. The patient states that her fluid was tested, but was not a malignant, as far as she is aware. She also states that she has had multiple imaging studies done, which showed enlarged lymph nodes. In addition she's been having significant chronic pain, related to the upper abdomen and mid back and is currently on methadone. Her care so far has been at [facility], but she was planning to transfer here and was actually supposed to see Dr. Beckman in the office next week. She came into the emergency room, as her back pain worsened over the last 2 days, in association with increasing abdominal distention and lower extremity swelling. She was admitted for further management. Review of Systems Constitutional: Reports poor appetite, Reports weakness, Reports weight loss Eyes: denies blurred vision, denies pain Ears: deny: decreased hearing, ear discharge, earache, tinnitus Ears, nose, mouth and throat: Denies headache, Denies sore throat Cardiovascular: Reports decreased exercise tolerance, Reports dyspnea on exertion Respiratory: Reports dyspnea Gastrointestinal: Reports abdominal pain, Reports constipation Genitourinary: Denies dysuria, Denies hematuria Menstruation: Reports postmenopausal Musculoskeletal: Reports muscle weakness Integumentary: Denies pruritus, Denies rash Neurological: Reports weakness, Denies numbness Psychiatric: Denies anxiety, Denies depression Endocrine: Reports fatigue, Reports weight change Hematologic/Lymphatic: Reports as per HPI Past Medical History Past Medical History: Asthma, Cancer, Osteoarthritis (OA) Additional Past Medical History / Comment(s): Gallbladder adenocarcinoma 2016 Status post right hepatectomy, Kiara-en-Y hepaticojejunostomy, common bile duct resection. 10/02/2016 Postoperative abdominal abscess positive for Enterococcus faecalis and Clostridium perfringens. 10/10/2016 right pleural effusion status post thoracentesis without evidence of infection. History of Any Multi-Drug Resistant Organisms: None Reported Past Surgical History: Appendectomy, Bladder Surgery Additional Past Surgical History / Comment(s): pt states half liver, all of gallbladder and rerouted bile ducts and has a drainage system for bile. Breast biopsy, PICC line right upper arm Past Psychological History: No Psychological Hx Reported Smoking Status: Former smoker Past Alcohol Use History: Rare Additional Past Alcohol Use History / Comment(s): Patient smokes one pack of cigarettes per day and quit 37 years ago. She denies any medical marijuana, marijuana, street drug use. She drinks alcohol on a very rare ASIS. She is currently living alone as her day after Tana. 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 She recently vacationed in [place] with a camper, her dog in her sister. She has been very active and only see a proximal a 6-8 months ago she was splitting logs with a log splitter on her property. Past Drug Use History: None Reported - Past Family History Mother Family Medical History: Cancer Additional Family Medical History / Comment(s): pancreatic cancer Medications and Allergies Home Medications Medication Instructions Recorded Confirmed Type Biotin 5,000 mcg PO DAILY@1700 10/17/16 01/10/17 History Bisacodyl [Dulcolax] 10 mg RECTAL DAILY PRN 10/17/16 01/10/17 History Calcium Citrate 500 mg PO BID 10/17/16 01/10/17 History Cholecalciferol [Vitamin D3] 5,000 unit PO DAILY 10/17/16 01/10/17 History Furosemide [Lasix] 40 mg PO BID 10/17/16 01/10/17 History Multivitamins, Thera [Multivitamin 1 tab PO DAILY 10/17/16 01/10/17 History (formulary)] Potassium Chloride [Klor-Con 20] 20 meq PO Q48H 10/17/16 01/10/17 History ALPRAZolam [Xanax] 0.25 mg PO Q8HR 01/10/17 01/10/17 History Acetaminophen [Tylenol] 325 mg PO Q4H PRN 01/10/17 01/10/17 History Albuterol Inhaler [Ventolin Hfa 2 puff INHALATION RT-Q4H PRN 01/10/17 01/10/17 History Inhaler] Docusate [Colace] 100 mg PO BID 01/10/17 01/10/17 History Flecainide [Tambocor] 50 mg PO Q12HR 01/10/17 01/10/17 History Inulin/Chromium Picolinate [Fiber 1 tab PO DAILY 01/10/17 01/10/17 History Gummies Chew] LORazepam [Ativan] 0.5 mg PO HS 01/10/17 01/10/17 History Levothyroxine Sodium [Synthroid] 125 mcg PO DAILY 01/10/17 01/10/17 History Methadone HCl [Dolophine HCl] 5 mg PO Q4HR 01/10/17 01/10/17 History Methadone HCl [Dolophine HCl] 15 mg PO Q8HR 01/10/17 01/10/17 History Metoclopramide HCl [Reglan] 5 mg PO Q8HR 01/10/17 01/10/17 History Metoprolol Tartrate [Lopressor] 12.5 mg PO DAILY 01/10/17 01/10/17 History Mirtazapine [Remeron] 30 mg PO HS 01/10/17 01/10/17 History Pantoprazole [Protonix] 40 mg PO DAILY 01/10/17 01/10/17 History Spironolactone [Aldactone] 25 mg PO DAILY 01/10/17 01/10/17 History busPIRone HCL [Buspar] 7.5 mg PO TID 01/10/17 01/10/17 History guaiFENesin [Mucinex] 600 mg PO DAILY PRN 01/10/17 01/10/17 History Allergies Allergy/AdvReac Type Severity Reaction Status Date / Time piperacillin [From Zosyn] Allergy Unknown Verified 01/10/17 14:55 tazobactam [From Zosyn] Allergy Unknown Verified 01/10/17 14:55 morphine AdvReac Confusion Verified 01/10/17 14:55 Physical Exam Vitals: Vital Signs Temp Pulse Pulse Resp BP BP Pulse Ox 01/11/17 06:03 89 103/64 01/11/17 00:04 71 16 100/60 96 01/11/17 00:00 71 16 01/10/17 22:34 80 16 100/61 96 01/10/17 21:25 97.9 F 85 16 103/65 96 01/10/17 20:16 91 16 101/61 94 L 01/10/17 17:38 97.7 F 92 18 100/56 95 01/10/17 16:29 91 18 106/63 97 01/10/17 15:14 85 18 99/57 97 01/10/17 13:34 99.0 F 90 20 93/53 98 Intake and Output 01/10/17 01/11/17 01/11/17 22:59 06:59 14:59 Intake Total 300 600 Balance 300 600 Intake: IV 100 200 0.9 @20ml/hr 100 200 Oral 200 400 Other: # Voids 3 4 Weight 55.338 kg - Constitutional General appearance: mild distress - EENT Eyes: EOMI, PERRLA ENT: hearing grossly normal, normal oropharynx - Neck Neck: no lymphadenopathy - Respiratory Respiratory: bilateral: CTA - Cardiovascular Rhythm: regular Heart sounds: normal: S1, S2 - Gastrointestinal General gastrointestinal: distended (ascites) Localized gastrointestinal: tender: RUQ - Integumentary Integumentary: normal - Neurologic Neurologic: CNII-XII intact - Musculoskeletal Musculoskeletal: generalized weakness, strength equal bilaterally - Psychiatric Psychiatric: A&O x's 3, appropriate affect Results CBC & Chem 7: 01/10/17 14:25 01/10/17 14:25 Labs: Abnormal Lab Results - Last 24 Hours (Table) 01/10/17 01/10/17 01/10/17 Range/Units 14:25 14:25 14:44 Hgb 10.6 L (11.4-16.0) gm/dL Neutrophils # 7.8 H (1.3-7.7) k/uL Sodium 132 L (137-145) mmol/L Chloride 96 L (98-107) mmol/L Calcium 8.1 L (8.4-10.2) mg/dL AST 47 H (14-36) U/L Alkaline Phosphatase 287 H (38-126) U/L Total Protein 5.3 L (6.3-8.2) g/dL Albumin 2.6 L (3.5-5.0) g/dL Amylase <30 L (30-110) U/L Lipase 16 L (23-300) U/L Urine Ketones Trace H (Negative) Ur Leukocyte Esterase Trace H (Negative) Urine Mucus Occasional H (None) /hpf Assessment and Plan (1) Ascites Narrative/Plan: The patient is having recurrent ascites, with more rapid accumulation recently. According to the patient, she has not been told if the previously drained a sciatic fluid was malignant . However we do not have the actual pathology report. These will be obtained from [facility]. In the meantime, for symptomatic relief, the patient will likely need repeat drainage. This will be arranged through IR, for 01/13/17. If cytology has not been done previously, or fluid analysis is suspicious but nondiagnostic, testing will be repeated. Status: Acute (2) History of bile duct cancer Narrative/Plan: Diagnostic and therapeutic circumstances are as described in the HPI. As noted , the patient was to see Dr. Beckman in the office next week. She is not had any systemic therapy for her malignancy. Based on her history, there is a suspicion for recurrence, given the mention of enlarged lymph nodes. Begin the actual computed tomography scan reports are not available. The office is in the process of obtaining those records from [facility] and these will be reviewed. If indicated, imaging will be repeated. The patient will follow-up with Dr. Beckman in the office on discharge Status: Acute (3) Abdominal pain Narrative/Plan: This is fairly significant as noted. The patient has been following with pain management and [facility]. She states that she was on fentanyl and oxycodone previously but these were not effective. According to the patient, pain controlled with the current regimen is also not optimal. I will increase the methadone dose to 20 mg every 8 hours, as well as the frequency of breakthrough methadone 2 every 3 hours. Anesthesiologist be consulted to evaluate for celiac plexus block, which based on her symptoms, could potentially provide significant relief. Dr. Fuentes will also be consulted for medical pain management. Status: Acute
[2017-01-12] MEDS: METHADONE 10 MG TAB PO SCH ×4 (00:50→16:28)
[2017-01-12] MEDS ORDERED: PANTOPRAZOLE 40 MG TABLET PO STA (02:22)
[2017-01-12] MEDS ORDERED: LEVOTHYROXINE 125 MCG TAB PO SCH (06:30)
[2017-01-12 08:48] VITALS: RESP 18
[2017-01-12] MEDS ORDERED: PANTOPRAZOLE 40 MG TABLET PO SCH (09:00)
[2017-01-12] MEDS: METOPROLOL TARTRATE 12.5 MG TAB PO SCH ×2 (09:08→15:45)
[2017-01-12] MEDS: SPIRONOLACTONE 25 MG TAB PO SCH (09:08)
[2017-01-12] MEDS: FLECAINIDE 50 MG TAB PO SCH (09:08)
[2017-01-12] MEDS: busPIRone HCl 5 MG TAB PO SCH ×2 (09:08→16:28)
[2017-01-12] MEDS: FUROSEMIDE 10 MG/ML 4 ML VIAL IV SCH (09:08)
[2017-01-12 10:54] LABS: Basophils # (A) 0.1 k/uL (0-0.2); Basophils % (A) 1 %; CH 27.4; CHCM 31.3; Eosinophils # (A) 0.2 k/uL (0-0.7); Eosinophils % (A) 2 %; HCT 35.6 % (34.0-46.0); HDW 2.59; HGB 10.9 gm/dL (11.4-16.0); Hypochromasia Slight; Luc # (Auto) 0.09; Luc % (Auto) 1; Lymphocytes # (A) 0.6 k/uL (1.0-4.8); Lymphocytes % (A) 6 %; MCH 26.8 pg (25.0-35.0); MCHC 30.6 g/dL (31.0-37.0); MCV 87.8 fL (80.0-100.0); Mean Platelet Volume 7.4; Monocytes # (A) 0.6 k/uL (0-1.0); Monocytes % (A) 6 %; Neutrophils # (A) 8.4 k/uL (1.3-7.7); Neutrophils % (A) 85 %; RBC 4.05 m/uL (3.80-5.40); RDW 15.2 % (11.5-15.5); WBC 9.9 k/uL (3.8-10.6); WBC (Perox) 10.42
[2017-01-12 11:21] LABS: ALT 40 U/L (9-52); AST 35 U/L (14-36); Alkaline Phosphatase 256 U/L (38-126); Anion Gap 6 mmol/L; Blood Urea Nitrogen 12 mg/dL (7-17); Calcium 8.4 mg/dL (8.4-10.2); Carbon Dioxide 34 mmol/L (22-30); Chloride 93 mmol/L (98-107); Glucose 125 mg/dL (74-99); Non-African American GFR(MDRD) >60 (>60 ml/min/1.73 sqM); Potassium 3.9 mmol/L (3.5-5.1); Sodium 133 mmol/L (137-145); Total Bilirubin 0.4 mg/dL (0.2-1.3); Total Protein 5.8 g/dL (6.3-8.2)
[2017-01-12] MEDS: ONDANSETRON 4 MG/2 ML VIAL IVP PRN (11:58)
[2017-01-12 15:42] VITALS: TEMP 97.4
[2017-01-12 16:13] VITALS: BP 98/59; PULSE 75
--- NOTE | 2017-01-12 16:52 | P.DS ---
Providers Date of admission: 01/10/17 16:21 Attending physician: Andrea Rojo MD Consults: 01/10/17 16:21 Consult Physician Urgent Consulting Provider: Benton Mckeon Consult Reason/Comments: History of biliary duct carcinoma Do you want consulting provider notified?: Yes 01/11/17 08:22 Consult Physician Routine Consulting Provider: Joshua Fuentes Consult Reason/Comments: Pain management Do you want consulting provider notified?: Yes 01/11/17 08:23 Consult Physician Routine Consulting Provider: Wilman Dc Consult Reason/Comments: Evaluate for celiac plexus block Do you want consulting provider notified?: Yes Primary care physician: [facility] Course: This is a 71-year-old that comes in to the hospital with worsening lower back pain and abdominal pain. Patient has a history of gallbladder cancer underwent surgical resection at [facility] in August with the partial hepatic resection at that time as well. Patient thereafter had IVC occlusion which was thought to be due to growth of the liver. Patient thereafter had an IVC stent placed Patient was seen previously on her service with hypoalbuminemia. Patient apparently underwent 2 cycles of paracentesis with close to 8 L of fluid being removed patient was started on a small dose of Lasix and spironolactone or graft patient does not know if the ascitic fluid was positive for cancer She does state that there is a lymph node that was positive for cancer Patient has a port placed and has not started chemotherapy Apparently there was a MRI of the lumbar spine that was done initially concerning for a metastatic spot however he was later reported that it was a large inflammatory lymph node compressing on the spinal cord with nerve compression At this time patient states that her abdomen has been worsening hence came in to the hospital for further evaluation and also wants to find a new oncologist Patient was started on methadone while at [facility] At this time denies having any headaches blurry vision chest pain urinary urgency or frequency Physical exam Gen. appearance oriented 3 in no distress Neck is supple no JVD Lungs good air entry clear to auscultation no rhonchi or wheezing Heart S1-S2 heard regular rate and rhythm no murmurs appreciated Abdomen is soft , distended Previous surgical scar noted Tenderness in the lumbar spine No organomegaly noted. Neurologically cranial nerves II-12 grossly intact no focal motor or sensory deficits noted Skin no abnormalities appreciated Plan: 1. History of Gall bladder cancer 2. Ascites, due to hypoalbuminemia or due to cancer with peritoneal carcinomatosis 3. 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 Plan - Discharge Summary New Discharge Prescriptions: New Desipramine [Norpramin] 25 mg PO HS #30 tab Furosemide [Lasix] 40 mg PO BID #60 tablet Methadone [Dolophine] 20 mg PO Q8HR #30 tab oxyCODONE HCL [OxyIR] 10 mg PO Q4H PRN #50 tab PRN Reason: Pain Spironolactone [Aldactone] 50 mg PO BID #60 tab Continue Bisacodyl [Dulcolax] 10 mg RECTAL DAILY PRN PRN Reason: Constipation Calcium Citrate 500 mg PO BID Cholecalciferol [Vitamin D3] 5,000 unit PO DAILY Multivitamins, Thera [Multivitamin (formulary)] 1 tab PO DAILY Biotin 5,000 mcg PO DAILY@1700 Inulin/Chromium Picolinate [Fiber Gummies Chew] 1 tab PO DAILY Albuterol Inhaler [Ventolin Hfa Inhaler] 2 puff INHALATION RT-Q4H PRN PRN Reason: Shortness Of Breath Acetaminophen [Tylenol] 325 mg PO Q4H PRN PRN Reason: Pain Pantoprazole [Protonix] 40 mg PO DAILY Metoprolol Tartrate [Lopressor] 12.5 mg PO DAILY Levothyroxine Sodium [Synthroid] 125 mcg PO DAILY Flecainide [Tambocor] 50 mg PO Q12HR Docusate [Colace] 100 mg PO BID busPIRone HCL [Buspar] 7.5 mg PO TID ALPRAZolam [Xanax] 0.25 mg PO Q8HR guaiFENesin [Mucinex] 600 mg PO DAILY PRN PRN Reason: Cough Changed Potassium Chloride [Klor-Con 20] 20 meq PO DAILY #30 Discontinued Furosemide [Lasix] 40 mg PO BID Spironolactone [Aldactone] 25 mg PO DAILY Mirtazapine [Remeron] 30 mg PO HS Metoclopramide HCl [Reglan] 5 mg PO Q8HR Methadone HCl [Dolophine HCl] 15 mg PO Q8HR Methadone HCl [Dolophine HCl] 5 mg PO Q4HR LORazepam [Ativan] 0.5 mg PO HS Discharge Medication List Biotin 5,000 mcg PO DAILY@1700 10/17/16 [History] Bisacodyl [Dulcolax] 10 mg RECTAL DAILY PRN 10/17/16 [History] Calcium Citrate 500 mg PO BID 10/17/16 [History] Cholecalciferol [Vitamin D3] 5,000 unit PO DAILY 10/17/16 [History] Multivitamins, Thera [Multivitamin (formulary)] 1 tab PO DAILY 10/17/16 [History ] ALPRAZolam [Xanax] 0.25 mg PO Q8HR 01/10/17 [History] Acetaminophen [Tylenol] 325 mg PO Q4H PRN 01/10/17 [History] Albuterol Inhaler [Ventolin Hfa Inhaler] 2 puff INHALATION RT-Q4H PRN 01/10/17 [ History] Docusate [Colace] 100 mg PO BID 01/10/17 [History] Flecainide [Tambocor] 50 mg PO Q12HR 01/10/17 [History] Inulin/Chromium Picolinate [Fiber Gummies Chew] 1 tab PO DAILY 01/10/17 [History ] Levothyroxine Sodium [Synthroid] 125 mcg PO DAILY 01/10/17 [History] Metoprolol Tartrate [Lopressor] 12.5 mg PO DAILY 01/10/17 [History] Pantoprazole [Protonix] 40 mg PO DAILY 01/10/17 [History] busPIRone HCL [Buspar] 7.5 mg PO TID 01/10/17 [History] guaiFENesin [Mucinex] 600 mg PO DAILY PRN 01/10/17 [History] Desipramine [Norpramin] 25 mg PO HS #30 tab 01/12/17 [Rx] Furosemide [Lasix] 40 mg PO BID #60 tablet 01/12/17 [Rx] Methadone [Dolophine] 20 mg PO Q8HR #30 tab 01/12/17 [Rx] Potassium Chloride [Klor-Con 20] 20 meq PO DAILY #30 01/12/17 [Rx] Spironolactone [Aldactone] 50 mg PO BID #60 tab 01/12/17 [Rx] oxyCODONE HCL [OxyIR] 10 mg PO Q4H PRN #50 tab 01/12/17 [Rx] Follow up Appointment(s)/Referral(s): Panfilo Cunningham MD [STAFF PHYSICIAN] - 3 Days Wilman Dc MD [STAFF PHYSICIAN] - 1 Week Raffaele Cooper DO [Primary Care Provider] - 1-2 days Ambulatory/Diagnostic Orders: Comprehensive Metabolic Panel [LAB.AMB] Location: Determined By Patient Discharge Disposition: HOME SELF-CARE
== END 2017-01-12 17:54 | disposition home or self-care (01) | DRG 375 ==
LOC: EC 13:22 → 5MS5E 16:21
PROVIDERS: ADMIT Internal Medicine; ATTEND Internal Medicine
DX: C78.6 Secondary malignant neoplasm of retroperitoneum and peritoneum (principal); R18.8 Other ascites; K74.60 Unspecified cirrhosis of liver; E88.09 Other disorders of plasma-protein metabolism, not elsewhere classified; E03.9 Hypothyroidism, unspecified; G89.4 Chronic pain syndrome; J45.909 Unspecified asthma, uncomplicated; M19.90 Unspecified osteoarthritis, unspecified site; M54.5 Low back pain; Z79.891 Long term (current) use of opiate analgesic; Z79.899 Other long term (current) drug therapy; Z87.891 Personal history of nicotine dependence; Z85.09 Personal history of malignant neoplasm of other digestive organs; Z88.5 Allergy status to narcotic agent; Z88.0 Allergy status to penicillin; Z80.0 Family history of malignant neoplasm of digestive organs
CPT/HCPCS: 36415; 80053; 81001; 82150; 83690; 85025; 85610; 85730; 93005; 96374; 96375; 96376; 99285

== ENCOUNTER 2017-01-21 08:07 | Day surgery (SDC) | payer MEDICARE ==
[2017-01-21 08:52] LABS: Mean Platelet Volume 6.2
[2017-01-21 09:01] LABS: INR 1.1 (<1.2); Prothrombin Time 11.5 sec (9.0-12.0)
[2017-01-21 09:06] VITALS: TEMP 97
[2017-01-21 10:09] VITALS: RESP 16
[2017-01-21 10:10] VITALS: BP 103/61; PULSE 96
--- NOTE | 2017-01-21 10:52 | US ---
ULTRASOUND GUIDED FNA LEFT SUPRACLAVICULAR LYMPH NODE BIOPSY: CLINICAL HISTORY: Left supraclavicular lymphadenopathy FINDINGS: The procedure was explained to the patient. The risks, complications, benefits and alternatives were discussed and any questions were answered. Informed consent was obtained. Patient was placed supin e on the ultrasound table and prepped and draped in the usual sterile fashion. Utilizing a 25 gauge needle, five passes were made into the requested nodule. Patient was stable throughout the procedure. Pathology is pending. All elements of maximal barrier technique were utilized. IMPRESSION: 1. Successful ultrasound guided FNA thyroid biopsy.
--- NOTE | 2017-01-21 10:53 | US ---
Therapeutic paracentesis. DATE OF EXAM: 01/21/2017 CLINICAL HISTORY: Ascites The procedure was discussed with the patient. The risks, complications, benefits, and alternatives we re discussed and any questions were answered. Informed consent was obtained. The patient was placed s upine on the ultrasound table and prepped and draped in the usual sterile fashion. All elements of maximal barrier technique were utilized. Under ultrasound guidance, access into the left lower quadrant was obtained, via the paracentesis catheter system and direct ultrasound guidance . Approximately 5 liters of straw-colored fluid was removed. The patient was stable throughout the proc edure and remained stable upon discharge from Department of Radiology. IMPRESSION: Successful therapeutic paracentesis under ultrasound guidance.
== END 2017-01-21 11:30 | disposition home or self-care (01) ==
LOC: RADPROMAIN 08:07
PROVIDERS: ATTEND Internal Medicine Hematology & Oncology
DX: C96.9 Malignant neoplasm of lymphoid, hematopoietic and related tissue, unspecified (principal); R18.8 Other ascites; C23 Malignant neoplasm of gallbladder
CPT/HCPCS: 10022; 49083; 76942; 85049; 85610; 88108; 88173; 88305; 88341; 88342

== ENCOUNTER 2017-01-21 11:32 | Emergency (ER) | payer MEDICARE ==
[2017-01-21 11:40] VITALS: RESP 20
[2017-01-21] MEDS ORDERED: HYDROmorphone 1 MG/ML 1 ML SYRINGE IVP STA ×2 (12:04→14:02)
--- NOTE | 2017-01-21 12:18 | ED ---
General Adult HPI - General Chief complaint: Abdominal Pain Stated complaint: Confusion Time Seen by Provider: 01/21/17 11:45 Source: patient, family, RN notes reviewed Mode of arrival: wheelchair Limitations: no limitations - History of Present Illness Initial comments: 71-year-old female presents to the emergency department with a chief complaint of abdominal pain. Patient has a history of abdominal surgery for gallbladder and has had a Kiara-en-Y. Patient went to have a paracentesis today but prior she's been having a lot of abdominal cramping and pain. Patient states that even after she is having a lot of abdominal pain and cramping. Patient denies any fever chills nausea vomiting. Patient states that she just continues to have this discomfort so she thought that she should be evaluated. There is been no changes in bowel or bladder habits. She does admit to back pain and this is well but she is chronically of back pain due to enlarged lymph nodes. Patient denies any recent fever, chills, shortness of breath, chest pain, nausea vomiting, numbness or tingling, dysuria or hematuria, constipation or diarrhea, headaches or visual changes, or any other current symptoms. - Related Data Home Medications Medication Instructions Recorded Confirmed Biotin 5,000 mcg PO DAILY@1700 10/17/16 01/21/17 Bisacodyl [Dulcolax] 10 mg RECTAL DAILY PRN 10/17/16 01/21/17 Calcium Citrate 500 mg PO BID 10/17/16 01/21/17 Cholecalciferol [Vitamin D3] 5,000 unit PO DAILY 10/17/16 01/21/17 Multivitamins, Thera [Multivitamin 1 tab PO DAILY 10/17/16 01/21/17 (formulary)] ALPRAZolam [Xanax] 0.25 mg PO Q8HR 01/10/17 01/21/17 Acetaminophen [Tylenol] 325 mg PO Q4H PRN 01/10/17 01/21/17 Albuterol Inhaler [Ventolin Hfa 2 puff INHALATION RT-Q4H PRN 01/10/17 01/21/17 Inhaler] Docusate [Colace] 100 mg PO BID 01/10/17 01/21/17 Flecainide [Tambocor] 50 mg PO Q12HR 01/10/17 01/21/17 Inulin/Chromium Picolinate [Fiber 1 tab PO DAILY 01/10/17 01/21/17 Gummies Chew] Levothyroxine Sodium [Synthroid] 125 mcg PO DAILY 01/10/17 01/21/17 Pantoprazole [Protonix] 40 mg PO DAILY 01/10/17 01/21/17 busPIRone HCL [Buspar] 7.5 mg PO TID 01/10/17 01/21/17 guaiFENesin [Mucinex] 600 mg PO DAILY PRN 01/10/17 01/21/17 Dronabinol [Marinol] 2.5 mg PO BID 01/15/17 01/21/17 Raloxifene [Evista] 60 mg PO DAILY 01/15/17 01/21/17 Ciprofloxacin HCl [Cipro] 500 mg PO Q12HR 01/21/17 01/21/17 Previous Rx's Medication Instructions Recorded Desipramine [Norpramin] 25 mg PO HS #30 tab 01/12/17 Furosemide [Lasix] 40 mg PO BID #60 tablet 01/12/17 Methadone [Dolophine] 20 mg PO Q8HR #30 tab 01/12/17 Potassium Chloride [Klor-Con 20] 20 meq PO DAILY #30 01/12/17 Spironolactone [Aldactone] 50 mg PO BID #60 tab 01/12/17 oxyCODONE HCL [OxyIR] 10 mg PO Q4H PRN #50 tab 01/12/17 Allergies Allergy/AdvReac Type Severity Reaction Status Date / Time piperacillin [From Zosyn] Allergy Unknown Verified 01/21/17 11:52 tazobactam [From Zosyn] Allergy Unknown Verified 01/21/17 11:52 morphine AdvReac Confusion Verified 01/21/17 11:52 Review of Systems ROS Statement: Those systems with pertinent positive or pertinent negative responses have been documented in the HPI. ROS Other: All systems not noted in ROS Statement are negative. 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 10/02/2016 Postoperative abdominal abscess positive for Enterococcus faecalis and Clostridium perfringens. 10/10/2016 right pleural effusion status post thoracentesis without evidence of infection. History of Any Multi-Drug Resistant Organisms: None Reported Past Surgical History: Appendectomy, Bladder Surgery Additional Past Surgical History / Comment(s): pt states half liver, all of gallbladder and rerouted bile ducts and has a drainage system for bile. Breast biopsy, PICC line right upper arm Past Psychological History: No Psychological Hx Reported Smoking Status: Former smoker Past Alcohol Use History: Rare Past Drug Use History: None Reported - Past Family History Mother Family Medical History: Cancer Additional Family Medical History / Comment(s): pancreatic cancer General Exam - General Exam Comments Initial Comments: General: The patient is awake and alert, in no distress, and does not appear acutely ill. Eye: Pupils are equal, round and reactive to light, extra-ocular movements are intact; there is normal conjunctiva bilaterally. No signs of icterus. Ears, nose, mouth and throat: There are moist mucous membranes and no oral lesions. Neck: The neck is supple, there is no tenderness. Cardiovascular: There is a regular rate and rhythm. No murmur, rub or gallop is appreciated. Respiratory: Lungs are clear to auscultation, respirations are non-labored, breath sounds are equal. No wheezes, stridor, rales, or rhonchi. Gastrointestinal: Soft, distended, diffusely mildly tender abdomen without masses or organomegaly noted. There is no rebound or guarding present. No CVA tenderness. Bowel sounds are unremarkable. Back: There is no tenderness to palpation in the midline. There is no obvious deformity. No rashes noted. Musculoskeletal: Normal ROM, no tenderness, There is no pedal edema. There is no calf tenderness or swelling. Sensation intact. Pulses equal bilaterally 2+. Neurological: CN II-XII intact, There are no obvious motor or sensory deficits. Coordination appears grossly intact. Speech is normal. Skin: Skin is warm and dry and no rashes or lesions are noted. Psychiatric: Cooperative, appropriate mood & affect, normal judgment. Limitations: no limitations Course Vital Signs 01/21/17 11:34 Temperature 96.3 F L Pulse Rate 102 H Respiratory 20 Rate Blood Pressure 97/50 O2 Sat by Pulse 96 Oximetry Medical Decision Making - Medical Decision Making 71-year-old female presents emergency department with a chief complaint of abdominal pain. At this time lab work has been reviewed and doesn't appear to be stable from previous. At this time we did treat the patient's pain and she has an appointment follow-up with Dr. Karuna Ellis. She is requesting discharge. We will discharge the patient. We discussed return for hours. All the patient' s questions. They stated they understood they are given plan. They will be discharged. - Lab Data Result diagrams: 01/21/17 12:40 01/21/17 12:40 Lab Results 01/21/17 01/21/17 01/21/17 Range/Units 12:40 12:40 12:40 WBC 10.3 (3.8-10.6) k/uL RBC 3.92 (3.80-5.40) m/uL Hgb 10.6 L (11.4-16.0) gm/dL Hct 33.5 L (34.0-46.0) % MCV 85.3 (80.0-100.0) fL MCH 26.9 (25.0-35.0) pg MCHC 31.6 (31.0-37.0) g/dL RDW 15.0 (11.5-15.5) % Plt Count 234 (150-450) k/uL Neutrophils % 87 % Lymphocytes % 6 % Monocytes % 4 % Eosinophils % 2 % Basophils % 0 % Neutrophils # 9.0 H (1.3-7.7) k/uL Lymphocytes # 0.6 L (1.0-4.8) k/uL Monocytes # 0.4 (0-1.0) k/uL Eosinophils # 0.2 (0-0.7) k/uL Basophils # 0.0 (0-0.2) k/uL PT (9.0-12.0) sec INR (<1.2) APTT (22.0-30.0) sec Sodium 127 L (137-145) mmol/L Potassium 4.0 (3.5-5.1) mmol/L Chloride 92 L (98-107) mmol/L Carbon Dioxide 27 (22-30) mmol/L Anion Gap 8 mmol/L BUN 10 (7-17) mg/dL Creatinine 0.50 L (0.52-1.04) mg/dL Est GFR (MDRD) Af Amer >60 (>60 ml/min/1.73 sqM) Est GFR (MDRD) Non-Af >60 (>60 ml/min/1.73 sqM) Glucose 87 (74-99) mg/dL Calcium 8.3 L (8.4-10.2) mg/dL Total Bilirubin 0.7 (0.2-1.3) mg/dL AST 55 H (14-36) U/L ALT 45 (9-52) U/L Alkaline Phosphatase 392 H (38-126) U/L Ammonia 9 (<30) umol/L Total Protein 5.3 L (6.3-8.2) g/dL Albumin 2.5 L (3.5-5.0) g/dL Amylase <30 L (30-110) U/L Lipase 15 L (23-300) U/L Urine Color Urine Appearance (Clear) Urine pH (5.0-8.0) Ur Specific Morral (1.001-1.035) Urine Protein (Negative) Urine Glucose (UA) (Negative) Urine Ketones (Negative) Urine Blood (Negative) Urine Nitrite (Negative) Urine Bilirubin (Negative) Urine Urobilinogen (<2.0) mg/dL Ur Leukocyte Esterase (Negative) 01/21/17 01/21/17 Range/Units 12:40 13:22 WBC (3.8-10.6) k/uL RBC (3.80-5.40) m/uL Hgb (11.4-16.0) gm/dL Hct (34.0-46.0) % MCV (80.0-100.0) fL MCH (25.0-35.0) pg MCHC (31.0-37.0) g/dL RDW (11.5-15.5) % Plt Count (150-450) k/uL Neutrophils % % Lymphocytes % % Monocytes % % Eosinophils % % Basophils % % Neutrophils # (1.3-7.7) k/uL Lymphocytes # (1.0-4.8) k/uL Monocytes # (0-1.0) k/uL Eosinophils # (0-0.7) k/uL Basophils # (0-0.2) k/uL PT 11.3 (9.0-12.0) sec INR 1.1 (<1.2) APTT 30.1 H (22.0-30.0) sec Sodium (137-145) mmol/L Potassium (3.5-5.1) mmol/L Chloride (98-107) mmol/L Carbon Dioxide (22-30) mmol/L Anion Gap mmol/L BUN (7-17) mg/dL Creatinine (0.52-1.04) mg/dL Est GFR (MDRD) Af Amer (>60 ml/min/1.73 sqM) Est GFR (MDRD) Non-Af (>60 ml/min/1.73 sqM) Glucose (74-99) mg/dL Calcium (8.4-10.2) mg/dL Total Bilirubin (0.2-1.3) mg/dL AST (14-36) U/L ALT (9-52) U/L Alkaline Phosphatase (38-126) U/L Ammonia (<30) umol/L Total Protein (6.3-8.2) g/dL Albumin (3.5-5.0) g/dL Amylase (30-110) U/L Lipase (23-300) U/L Urine Color Yellow Urine Appearance Clear (Clear) Urine pH 7.5 (5.0-8.0) Ur Specific Morral 1.008 (1.001-1.035) Urine Protein Negative (Negative) Urine Glucose (UA) Negative (Negative) Urine Ketones 1+ H (Negative) Urine Blood Negative (Negative) Urine Nitrite Negative (Negative) Urine Bilirubin Negative (Negative) Urine Urobilinogen <2.0 (<2.0) mg/dL Ur Leukocyte Esterase Negative (Negative) - Radiology Data Radiology results: report reviewed, image reviewed Disposition Clinical Impression: Abdominal pain Disposition: HOME SELF-CARE Condition: Stable Instructions: Abdominal Pain (ED) Additional Instructions: Please use medication as discussed. Please follow up with family doctor if symptoms have not improved over the next two days. Please return to the emergency room if your symptoms increase or worsen or for any other concerns. Referrals: Raffaele Cooper DO [Primary Care Provider] - 1-2 days Time of Disposition: 14:24
[2017-01-21 13:07] LABS: ALT 45 U/L (9-52); AST 55 U/L (14-36); Alkaline Phosphatase 392 U/L (38-126); Amylase <30 U/L (30-110); Anion Gap 8 mmol/L; Blood Urea Nitrogen 10 mg/dL (7-17); Calcium 8.3 mg/dL (8.4-10.2); Carbon Dioxide 27 mmol/L (22-30); Chloride 92 mmol/L (98-107); Glucose 87 mg/dL (74-99); Non-African American GFR(MDRD) >60 (>60 ml/min/1.73 sqM); Sodium 127 mmol/L (137-145); Total Bilirubin 0.7 mg/dL (0.2-1.3); Total Protein 5.3 g/dL (6.3-8.2)
[2017-01-21 13:12] LABS: Basophils % (A) 0 %; CH 27.6; CHCM 32.5; Eosinophils # (A) 0.2 k/uL (0-0.7); Eosinophils % (A) 2 %; HCT 33.5 % (34.0-46.0); HGB 10.6 gm/dL (11.4-16.0); Luc % (Auto) 1; Lymphocytes # (A) 0.6 k/uL (1.0-4.8); Lymphocytes % (A) 6 %; MCH 26.9 pg (25.0-35.0); MCHC 31.6 g/dL (31.0-37.0); MCV 85.3 fL (80.0-100.0); Monocytes # (A) 0.4 k/uL (0-1.0); Monocytes % (A) 4 %; Neutrophils % (A) 87 %; RBC 3.92 m/uL (3.80-5.40); WBC 10.3 k/uL (3.8-10.6); WBC (Perox) 10.73
[2017-01-21 13:26] LABS: INR 1.1 (<1.2); Partial Thromboplastin Time 30.1 sec (22.0-30.0); Prothrombin Time 11.3 sec (9.0-12.0)
[2017-01-21 13:36] LABS: Appearance,Urine Clear (Clear); Bilirubin,Urine Negative (Negative); Glucose,Urine (UA) Negative (Negative); Ketones,Urine 1+ (Negative); Leukocyte Esterase,Urine Negative (Negative); Nitrite,Urine Negative (Negative); PH, Urine 7.5 (5.0-8.0); Protein,Urine Negative (Negative); Specific Gravity,Urine 1.008 (1.001-1.035); UA Billing (MACRO vs. MICRO) CHEM; Urobilinogen,Urine <2.0 mg/dL (<2.0)
--- NOTE | 2017-01-21 13:41 | XR ---
EXAMINATION TYPE: XR abdomen 2V DATE OF EXAM: 01/21/2017 CLINICAL HISTORY: Abdominal pain with history of gallbladder carcinoma. TECHNIQUE: Supine and upright views of the abdomen are obtained. COMPARISON: None. FINDINGS: Scattered gas is seen in non-distended small bowel loops. There is no visceromegaly, pne umoperitoneum, or abnormal calcification appreciated. Endovascular stent is seen in the inferior jane a cava. Surgical sutures are noted in the upper outer fossa. Moderate amount of retained stool is see n throughout the colon. Hepatic flexure is tortuous. Bowel gas is noted within the rectum. The lung bases are clear and the osseous structures are intact. IMPRESSION: Moderate amount of retained colonic stool in a nonobstructive bowel gas pattern.
[2017-01-21 14:41] VITALS: BP 95/50; PULSE 99; TEMP 97
== END 2017-01-21 14:41 | disposition home or self-care (01) ==
LOC: EC 11:32
DX: R10.9 Unspecified abdominal pain (principal); R14.0 Abdominal distension (gaseous); M54.9 Dorsalgia, unspecified; G89.29 Other chronic pain; Z87.891 Personal history of nicotine dependence; Z79.899 Other long term (current) drug therapy; Z88.0 Allergy status to penicillin; Z88.5 Allergy status to narcotic agent; Z85.07 Personal history of malignant neoplasm of pancreas; Z85.89 Personal history of malignant neoplasm of other organs and systems; Z90.49 Acquired absence of other specified parts of digestive tract; Z98.84 Bariatric surgery status
CPT/HCPCS: 36415; 80053; 82140; 82150; 83690; 85025; 85610; 85730; 81003; 87040; 87086; 74020; 99284; 96374; 96376; J1170